=== PATIENT | female | born 1960 | race Caucasian/White ===

== ENCOUNTER → 2017-10-16 13:42 | Outpatient (POV) | payer OTHER, SELFPAY | PROVIDERS: Visit Provider Physician Assistant | DX: Z00.00 Encounter for general adult medical examination without abnormal findings (principal) ==

== ENCOUNTER → 2020-12-04 16:24 | Outpatient (CLI) | payer MEDICARE, SELFPAY ==
--- NOTE | 2020-12-04 16:29 | XR_ITS ---
PROCEDURE INFORMATION: Exam: XR Right Hip Exam date and time: 12/04/2020 4:29 PM Age: 60 years old Clinical indication: Patient HX: Fall, right hip pain, hematoma of right hip; Additional info: Pain post traumatic fall TECHNIQUE: Imaging protocol: XR Right hip. Views: 2 or 3 views hip with pelvis when performed. Total images: 3 COMPARISON: No relevant prior studies available. FINDINGS: Bones/joints: Osteopenia. No fracture. Hip joints are well aligned. Mild-moderate joint space narrowing and osteoarthritic spurring in the medial right hip joint. No radiographic evidence to suggest transient osteoporosis or avascular necrosis. No blastic or lytic lesions. Mild osteoarthritic sclerosis in the SI joints with no evidence of diastasis. The pubic symphysis is unremarkable. Soft tissues: No gross soft tissue abnormalities. Other findings: No gross sacrococcygeal abnormalities. IMPRESSION: 1. No acute findings. 2. Osteopenia. 3. Mild-moderate osteoarthritic changes are seen in the inferomedial right hip joint space with joint space narrowing and marginal spurring.
== END ==
PROVIDERS: PCP Family Medicine; Visit Provider Family Medicine
DX: M54.9 Dorsalgia, unspecified (principal)
CPT/HCPCS: 73502

== ENCOUNTER → 2021-06-14 12:37 | Outpatient (CLI) | payer MEDICARE, SELFPAY ==
--- NOTE | 2021-06-14 12:37 | CA_ITS ---
FINAL REPORT TECHNIQUE: Color Doppler, duplex Doppler and whitney scale sonography of the bilateral neck arterial vasculature was performed. Velocities were measured in the carotid arteries. Stenosis evaluation based on the validated velocity criteria. CLINICAL HISTORY: ALONZO, HTN, dizziness, ex smoker quit 10-12 years ago, near syncopal episode, hx of TIA's FINDINGS: The peak systolic velocity of the right common carotid artery is 114 cm/s. The peak systolic velocity of the right internal carotid artery is 132 cm/s and end diastolic velocity 51 cm/s. A small amount of plaque is present. The right external carotid artery is patent. The right vertebral artery is patent with antegrade flow. The peak systolic velocity of the left common carotid artery is 135 cm/s. The peak systolic velocity of the left internal carotid artery is 179 cm/s and end diastolic velocity 50 cm/s. A small amount of plaque is present. The left external carotid artery is patent.The left vertebral artery is patent with antegrade flow. IMPRESSION: Less than 50% bilateral carotid stenoses. Bilateral patent vertebral arteries with antegrade flow. If indicated, CTA or MRA could further evaluate. Reviewed, Interpreted and Dictated by Royal Walter III, MD Transcribed by Jojo Gutiérrez Authenticated by Royal Walter III, MD on 06/14/2021 03:18:23 PM [facility]
--- NOTE | 2021-06-14 12:45 | XR_ITS ---
FINAL REPORT CLINICAL HISTORY: COPD FINDINGS: Two views of the chest were obtained. The heart size and pulmonary vascularity are within normal limits. The mediastinum is normal. No acute pulmonary abnormality is identified. There is no pneumothorax. There are postoperative changes of the lower C-spine. IMPRESSION: No active cardiopulmonary disease. Reviewed, Interpreted and Dictated by Royal Walter III, MD Transcribed by Nixon Salinas Authenticated by Royal Walter III, MD on 06/14/2021 02:05:59 PM [facility]
== END ==
PROVIDERS: PCP Family Medicine; Visit Provider Family Medicine
DX: R09.89 Other specified symptoms and signs involving the circulatory and respiratory systems (principal); J44.9 Chronic obstructive pulmonary disease, unspecified
CPT/HCPCS: 71046; 93880

== ENCOUNTER → 2022-09-22 07:48 | Outpatient (CLI) | payer MEDICARE, SELFPAY ==
--- NOTE | 2022-09-22 08:00 | XR_ITS ---
FINAL REPORT CLINICAL HISTORY: Pt fell x 7 wks ago, pain @ inferior angle of Lt scapula FINDINGS: LEFT SCAPULA 2 views of the left scapula were obtained. There is no acute fracture or dislocation. Visualized joint spaces are normally aligned. There are mild degenerative changes noted. Soft tissues are unremarkable. IMPRESSION: No acute bony abnormality. Reviewed, Interpreted and Dictated by Yulisa Victoria MD Transcribed by Jojo Gutiérrez Authenticated and . [facility]
--- NOTE | 2022-09-22 08:00 | XR_ITS ---
FINAL REPORT CLINICAL HISTORY: Pt fell in shower x 7 wks ago, dx w broken ribs, F/U. Hx COPD COMPARISON: 06/14/2021 FINDINGS: 2 views of the chest were obtained . The heart is normal in size. The mediastinum is within normal limits. Abnormal density in the right suprahilar region is similar to prior exam and is felt likely vascular or related to scarring. The lungs are otherwise clear. There is no pneumothorax. Osseous structures demonstrate old healed right rib fractures. IMPRESSION: No acute cardiopulmonary process. Reviewed, Interpreted and Dictated by Yulisa Victoria MD Transcribed by Jojo Gutiérrez Authenticated and [facility]
== END ==
LOC: RAD 07:50
PROVIDERS: PCP Family Medicine; Visit Provider Family Medicine
DX: J44.9 Chronic obstructive pulmonary disease, unspecified (principal); M15.4 Erosive (osteo)arthritis; S42.102A Fracture of unspecified part of scapula, left shoulder, initial encounter for closed fracture
CPT/HCPCS: 71046; 73010

== ENCOUNTER → 2022-10-04 07:06 | Outpatient (CLI) | payer MEDICARE, SELFPAY ==
--- NOTE | 2022-10-04 07:06 | CT_ITS ---
FINAL REPORT TECHNIQUE: Axial images were obtained from the lung apex to the mid abdomen by computed tomography. Coronal reformatted images were obtained. This study was performed with techniques to keep radiation doses as low as reasonably achievable, (ALARA). Individualized dose reduction techniques using automated exposure control or adjustment of mA and/or kV according to the patient''s size were employed. CLINICAL HISTORY: Chest pain post fall, fall last month still having grinding and popping sound COMPARISON: None FINDINGS: There is no axillary adenopathy. There are some nonspecific small mediastinal nodes present. There is a slight fullness in the anterior hilum, worrisome for lymph nodes or possible masses. Coronary artery calcifications are identified. Heart size is normal. Bilateral pleural calcifications are noted. There is no pericardial or pleural effusion. There are subacute or chronic fractures of the posterior sixth through 10th ribs on the left side, with a lack of bony union in most. The patient has undergone a prior cholecystectomy. No suspicious infiltrate or nodule is identified. IMPRESSION: Multiple subacute to chronic left posterior rib fractures, most of which lack of bony union. Slight fullness in the anterior hilum, worrisome for lymph nodes or possible masses. Would suggest a chest CT with contrast for further evaluation. Reviewed, Interpreted and Dictated by Royal Walter III, MD Transcribed by Isidra Willson Authenticated and [facility]
--- NOTE | 2022-10-04 07:08 | XR_ITS ---
FINAL REPORT TECHNIQUE: Bone densitometry calculations of the lumbar spine and left hip were obtained. CLINICAL HISTORY: osteopenia FINDINGS: Using L1-4, the bone mineral density of the spine is 0.906 g/cm2, corresponding to T-score of -1.3. Using the left hip, the bone mineral density of the femoral neck is 0.558 g/cm2, corresponding to a T-score of -3.1. Using the 1/3 radius, the bone mineral density of the radius is 0.451 g/cm2, corresponding to a T-score of -4.1. NOTE: T-score: Standard deviation compared with peak bone mass of young adult mean. *Following the recommendations of the International Society of Bone Densitometry, classification of hip BMD is based on the lower of two T-scores; total hip or femoral neck. IMPRESSION: Osteoporosis: Lowest T-score is at or below -2.5. This patient''s T-score meets the World Health Organization criteria for osteoporosis. FRAX data was not reported because some of the T-scores are at or below -2.5. Reviewed, Interpreted and Dictated by Royal Walter III, MD Transcribed by Helen Barnard Authenticated and [facility]
== END ==
LOC: RAD 07:06
PROVIDERS: PCP Family Medicine; Visit Provider Family Medicine
DX: R07.89 Other chest pain (principal); R07.9 Chest pain, unspecified; Z87.891 Personal history of nicotine dependence; M15.4 Erosive (osteo)arthritis; M81.0 Age-related osteoporosis without current pathological fracture; S42.109A Fracture of unspecified part of scapula, unspecified shoulder, initial encounter for closed fracture
CPT/HCPCS: 71250; 77080

== ENCOUNTER → 2022-12-22 22:21 | Outpatient (CLI) | payer MEDICARE, SELFPAY ==
[2022-12-22 20:19] LABS: Basophils % 0.7 % (0.1-2.0); Eosinophils # 0.2 K/mm3 (0.0-0.4); Eosinophils % 2.6 % (0.1-12.0); Hematocrit 40.7 % (37.0-47.0); Hemoglobin 13.2 g/dL (12.2-16.2); Lymphocytes # 1.5 K/mm3 (0.7-4.5); Mean Corpuscular HGB Conc 32.5 g/dL (31.8-35.4); Mean Corpuscular Hemoglobin 28.5 pg (27.0-31.2); Mean Corpuscular Volume 87.8 fl (81-99); Mean Platelet Volume 9.2 fl (7.4-10.4); Monocytes # 0.3 K/mm3 (0.1-1.0); Monocytes % 5.9 % (1.7-9.3); Neutrophils # 3.6 K/mm3 (1.8-7.8); Neutrophils % 63.9 % (37.0-80.0); Platelet Count 297 K/mm3 (142-424); Red Blood Count 4.63 M/mm3 (4.20-5.40); Red Cell Distribution Width 14.9 % (11.5-17.5); White Blood Count 5.7 K/mm3 (4.8-10.8)
[2022-12-22 20:23] LABS: Alanine Aminotransferase 17 U/L (12-78); Albumin Level 3.9 g/dl (3.5-5.0); Albumin/Globulin Ratio 1.5 (1.1-1.8); Alkaline Phosphatase 114 U/L (38-126); Anion Gap 13.1 mEq/L (5-15); Aspartate Amino Transferase 26 U/L (14-36); Bilirubin,Total 0.2 mg/dl (0.2-1.3); Blood Urea Nitrogen 14 mg/dl (7-17); Calcium 9.2 mg/dl (8.4-10.2); Carbon Dioxide 23 mmol/L (22.0-30.0); Chloride 108 mmol/L (98-107); Chol/HDL Ratio 3.8 (1-3.5); Cholesterol 208 mg/dl (140-200); Estimated Glomerular Filt Rate 101 ml/min (>60); GFR (African American) 122 ML/MIN (>60); Globulin 2.6 g/dL (1.3-3.2); Glucose 101 mg/dl (74-100); HDL Cholesterol 55 mg/dl (40-60); Potassium 4.1 mmoL/L (3.5-5.1); Sodium 140 mmol/L (136-145); Total Protein,Serum 6.5 g/dl (6.3-8.2); Triglycerides 78 mg/dl (30-150); VLDL Cholesterol 16 mg/dL (0-40)
[2022-12-22 20:34] LABS: Direct LDL Cholesterol 122.95 mg/dL (100-129)
[2022-12-22 20:40] LABS: 25-OH Vitamin D, Total 54.6 ng/mL (30-100)
[2022-12-22 20:43] LABS: Creatinine,Urine Random 56 mg/dL (Not Estab.)
[2022-12-22 20:44] LABS: Microalbumin < 6.000 mg/L (0-16.7)
[2022-12-22 20:54] LABS: Thyroid Stimulating Hormone 1.72 uIU/mL (0.465-4.68)
[2022-12-22 21:14] LABS: Vitamin B12 354 pg/mL (239-931)
== END ==
PROVIDERS: PCP Nurse Practitioner; Visit Provider Nurse Practitioner
DX: E55.9 Vitamin D deficiency, unspecified (principal); I10 Essential (primary) hypertension; F32.9 Major depressive disorder, single episode, unspecified; J44.9 Chronic obstructive pulmonary disease, unspecified; M81.0 Age-related osteoporosis without current pathological fracture; Z68.21 Body mass index [BMI] 21.0-21.9, adult; Z87.891 Personal history of nicotine dependence
CPT/HCPCS: 80053; 80061; 82043; 82306; 82570; 82607; 84443; 85025

== ENCOUNTER → 2022-12-27 08:54 | Outpatient (CLI) | payer MEDICARE, SELFPAY ==
[2022-12-27 18:00] LABS: Coronavirus 19, PCR Not Detected (NotDetected); Influenza A, PCR Not Detected (NotDetected); Influenza B, PCR Not Detected (NotDetected)
== END ==
PROVIDERS: PCP Nurse Practitioner; Visit Provider Nurse Practitioner
DX: J06.9 Acute upper respiratory infection, unspecified (principal); R06.09 Other forms of dyspnea; R09.89 Other specified symptoms and signs involving the circulatory and respiratory systems; R50.9 Fever, unspecified; R05.8 Other specified cough; J02.9 Acute pharyngitis, unspecified
CPT/HCPCS: 87636

== ENCOUNTER 2023-06-08 16:17 | Outpatient (CLI) | payer MEDICARE, SELFPAY ==
--- NOTE | 2023-06-08 16:32 | XR_ITS ---
PROCEDURE INFORMATION: Exam: XR Chest Exam date and time: 06/08/2023 4:35 PM Age: 62 years old Clinical indication: Shortness of breath; Additional info: SOB, right 10th rib FX TECHNIQUE: Imaging protocol: Radiologic exam of the chest. Views: 2 views. COMPARISON: CT CHEST WO CON 10/04/2022 7:07 AM FINDINGS: Lungs: Mild bibasilar atelectasis. No consolidation. Pleural spaces: Hazy opacities bilaterally consistent with bilateral posterior calcified pleural plaques. No pleural effusions. Heart/Mediastinum: Normal. No cardiomegaly. Vasculature: Atherosclerotic plaque in the aortic arch. Bones/joints: Status post cervical spine fusion. Mild thoracic spine dextroscoliosis. Multiple old left posterior rib fractures. IMPRESSION: No acute findings.
== END 2023-06-08 23:59 ==
LOC: RAD 16:18
PROVIDERS: PCP Nurse Practitioner; Visit Provider Nurse Practitioner
DX: R06.02 Shortness of breath (principal); S22.31XA Fracture of one rib, right side, initial encounter for closed fracture
CPT/HCPCS: 71046

== ENCOUNTER 2023-08-04 10:38 | Outpatient (CLI) | payer MEDICARE, SELFPAY ==
--- NOTE | 2023-08-04 10:39 | CT_ITS ---
FINAL REPORT CLINICAL HISTORY: lung cancer screening former smoker quit approx 10-12 years ago, total 47 years smoked 1PPD hx COPD COMPARISON: 10/04/2022 FINDINGS: CTDI vol (mGy): 2.90 DLP: 96.[address] images of the chest were obtained using the low-dose protocol for screening. There is no evidence of mediastinal or hilar mass or adenopathy. No axillary mass or adenopathy is identified. There are moderate left coronary artery calcifications. Again seen is mild fullness of the right hilum, favor vascular. There are bilateral pleural calcifications which may represent sequela of prior infection or asbestos exposure. There are several calcified granulomas. Limited imaging of the upper abdomen demonstrates postoperative change of cholecystectomy. There is a 5 mm right middle lobe nodule on image 45 which is stable. IMPRESSION: Stable 5 mm nodule in the right middle lobe on image 45. Lung RADS category 2. Recommend 12 month followup low-dose CT for further evaluation. Reviewed, Interpreted and Dictated by Royal Walter III, MD Transcribed by Jojo Gutiérrez Authenticated and [facility]
== END 2023-08-04 23:59 | disposition home or self-care (01) ==
LOC: RAD 10:39
PROVIDERS: PCP Nurse Practitioner; Visit Provider Nurse Practitioner
DX: Z87.891 Personal history of nicotine dependence (principal)
CPT/HCPCS: 71271

== ENCOUNTER 2024-01-15 11:45 | Outpatient (CLI) | payer MEDICARE, SELFPAY ==
[2024-01-15 19:59] LABS: HIV (1&2) Antibody Rapid NONREACTIVE (NONREACTIVE)
[2024-01-17 06:16] LABS: HCV Ab Non Reactive (Non Reactive)
== END 2024-01-15 23:59 | disposition home or self-care (01) ==
LOC: LAB.DROPOF 01-16 09:47
PROVIDERS: PCP Family Medicine; Visit Provider Family Medicine
DX: Z11.4 Encounter for screening for human immunodeficiency virus [HIV] (principal); Z11.59 Encounter for screening for other viral diseases
CPT/HCPCS: 86803; 87389

== ENCOUNTER 2024-07-18 13:53 | Outpatient (CLI) | payer MEDICARE, SELFPAY ==
[2024-07-18 18:22] LABS: Basophils % 0.4 % (0.1-2.0); Eosinophils # 0.1 Kmm3 (0.0-0.4); Eosinophils % 1.7 % (0.1-12.0); Hematocrit 37.8 % (37.0-47.0); Hemoglobin 12.7 g/dL (12.2-16.2); Immature Granulocytes # 0.05 10^3uL; Immature Granulocytes % 0.7 %; Lymphocytes # 2.5 K/mm3 (0.7-4.5); Lymphocytes % 33.4 % (10-50); Mean Corpuscular HGB Conc 33.6 g/dL (31.8-35.4); Mean Corpuscular Hemoglobin 30.2 pg (27.0-31.2); Mean Platelet Volume 9.7 fl (7.4-10.4); Monocytes # 0.6 K/mm3 (0.1-1.0); Monocytes % 8.1 % (1.7-9.3); Neutrophils # 4.1 K/mm3 (1.8-7.8); Neutrophils % 55.7 % (37.0-80.0); Nucleated Red Blood Cells # 0 10^3/uL; Nucleated Red Blood Cells % 0 %; Platelet Count 281 K/mm3 (142-424); Red Cell Distribution Width 13.2 % (11.5-17.5); Red Cell Distribution Width-SD 43.1 fL; White Blood Count 7.4 K/mm3 (4.8-10.8)
[2024-07-18 19:12] LABS: Alanine Aminotransferase 18 U/L (12-78); Albumin Level 3.7 g/dl (3.5-5.0); Albumin/Globulin Ratio 1.7 (1.1-1.8); Alkaline Phosphatase 110 U/L (38-126); Anion Gap 8.6 mEq/L (5-15); Aspartate Amino Transferase 22 U/L (14-36); Bilirubin,Total 0.3 mg/dl (0.2-1.3); Blood Urea Nitrogen 9 mg/dl (7-17); Carbon Dioxide 22 mmol/L (22.0-30.0); Chloride 110 mmol/L (98-107); Chol/HDL Ratio 3.7 (1-3.5); Cholesterol 179 mg/dl (140-200); Estimated Glomerular Filt Rate 101 ml/min (>60); GFR (African American) 122 ML/MIN (>60); Globulin 2.2 g/dL (1.3-3.2); Glucose 85 mg/dl (74-100); HDL Cholesterol 48 mg/dl (40-60); Potassium 3.6 mmoL/L (3.5-5.1); Sodium 137 mmol/L (136-145); Total Protein,Serum 5.9 g/dl (6.3-8.2); Triglycerides 80 mg/dl (30-150); VLDL Cholesterol 16 mg/dL (0-40)
[2024-07-18 19:23] LABS: Direct LDL Cholesterol 113.61 mg/dL (100-129)
[2024-07-18 19:29] LABS: 25-OH Vitamin D, Total 33.6 ng/mL (30-100); T4 (Thyroxine) 8.4 ug/dl (5.53-11.0)
[2024-07-18 19:42] LABS: Thyroid Stimulating Hormone 1.23 uIU/mL (0.465-4.68)
== END 2024-07-18 23:59 | disposition home or self-care (01) ==
LOC: LAB.DROPOF 22:39
PROVIDERS: PCP Nurse Practitioner Family; Visit Provider Nurse Practitioner Family
DX: N39.0 Urinary tract infection, site not specified (principal); Z00.00 Encounter for general adult medical examination without abnormal findings
CPT/HCPCS: 80053; 80061; 82306; 84436; 84443; 85025; 87086; 87088; 87186

== ENCOUNTER 2024-08-23 11:15 | Outpatient (CLI) | payer MEDICARE, SELFPAY ==
--- OUTSIDE RECORDS SUMMARY | 2024-08-24 08:32 | XMS_ITS | Referral Summary ---
Author Organization [facility] Address [address] [facility] [place] [address] Care Team Providers Care Strategic Debriefing Specialist Name Role Phone Pietro Verdugo MD Primary Care Provider [phone] Allergies Active Allergy Reactions Criticality Noted Date Comments Penicillins Unknown 02/07/2018 Medications Fluticasone-Umec lidin-Vilant (TRELEGY ELLIPTA IN) Use. Active citalopram (CELEXA) 20 MG TABS Take 20 mg by mouth daily. Active montelukast (SINGULAIR) 10 MG TABS Take 10 mg by mouth at bedtime. Active predniSONE (DELTASONE) 5 MG TABS Take 5 mg by mouth daily. Active omeprazole (PRILOSEC) 20 MG CPDR Take 20 mg by mouth daily. Active Probiotic Product (PROBIOTIC DAILY PO) Take by mouth. Active Albuterol (VENTOLIN IN) Use. Active Active Problems Problem Noted Date Diagnosed Date Carpal tunnel syndrome, right - RT OCTR (04-24-18 ) 02/08/2018 Social History Tobacco Use Types Packs/Day Years Used Date Smoking Tobacco: Never Smokeless Tobacco: Never Alcohol Use Standard Drinks/Week Comments Never 0 (1 standard drink = 0.6 oz pur e alcohol) AUDIT-C Answer Date Recorded Frequency of Alcohol Consumption Never 02/07/2018 Average Number of Drinks Not on file 018 Frequency of Binge Drinking Not on file 01/27 Comments No Sex and Gender Information Value Date Recorded Sex Assigned at Not on file Legal Sex Female 12:54 PM EDT Gender Identity Not on file Sexual Orientation Not on file Last Filed Vital Signs Vital Sign Reading Time Taken Comments Blood Pressure 143/65 04/24/2018 9:45 AM EST Pulse 80 04/24/2018 9:45 AM EST Temperature 36.6 C (97.8 F) 04/24/2018 7:58 AM EST Respiratory Rate 16 04/24/2018 9:45 AM EST Oxygen Saturation 100% 04/24/2018 9:45 AM EST Inhaled Oxygen Concentration - - Weight 72.6 kg (160 lb) 06/13/2018 10:55 AM EDT Height 157.5 cm (5' 2 ) 06/13/2018 10:55 AM EDT Body Mass Index 29.26 06/13/2018 10:55 AM EDT Functional Status * Are you deaf or do you have serious difficulty hearing? Answer Date of Assessment Author No 04/03/2018 12:04 PM Marianela Everett Registered Nurse * Are you blind or do you have serious difficulty seeing, even when wearing glasses? Answer Date of Assessment Author No 04/03/2018 12:04 PM Marianela Everett Registered Nurse * Do you have serious difficulty walking or climbing stairs? (5 years old or older) Answer Date of Assessment Author No 04/03/2018 12:04 PM Marianela Everett Registered Nurse * Do you have difficulty dressing or bathing? (5 years old or older) Answer Date of Assessment Author No 04/03/2018 12:04 PM Marianela Everett Registered Nurse * Because of a physical, mental, or emotional condition, do you have difficulty doing errands alone such as visiting a doctor???s office or shopping? (15 years old or older) Answer Date of Assessment Author No 04/03/2018 12:04 PM Marianela Everett Registered Nurse Mental Status * Because of a physical, mental, or emotional condition, do you have serious difficulty concentrating, remembering, or making decisions? (5 years old or older) Answer Entry Date Author No 04/03/2018 12:04 PM Marianela Everett Registered Nurse Plan of Treatment Not on file [place] [place] [address] ALL OTHERS NOT MEDICARE Care Teams Strategic Debriefing Specialist Relationship Specialty Start Date End Date Pietro Verdugo MD PCP - General 11/13/08
--- OUTSIDE RECORDS SUMMARY | 2024-08-24 08:32 | XMS_ITS | Clinical Summary ---
Author Organization [facility] Address [address] [place] [id number] Care Team Providers Care Internet Sales Manager Name Role Phone Pietro Verdugo MD Primary Care Provider Tye Chowdary MD Unavailable [phone] Allergies Active Allergy Reactions Criticality Noted Date Comments Penicillins 05/05/2020 Medications amLODIPine-freddy zepriL (LOTREL) 10-40 mg Capsule Take 1 Cap by mouth daily. Active omeprazole (PRILOSEC) 40 mg Capsule, Delayed Release(E.C.) Take 40 mg by mouth daily. Active citalopram (CELEXA) 20 mg tablet Take 20 mg by mouth daily. Active montelukast (SINGULAIR) 10 mg Tablet Take 10 mg by mouth nightly at bedtime. Active ipratropium (ATROVENT) 21 mcg (0.03 %) nasal spray Stowell 2 Sprays into nose 2 times daily. Active albuterol (VENTOLIN/PROAI R/PROVENTIL HFA) 90 mcg/actuation HFA Aerosol Inhaler Take 2 Puffs by inhalation. Active fluticasone-ume clidin-vilanter (Trelegy Ellipta) 100-62.5-25 mcg Disk with Device Take by inhalation daily. Active Albuterol-Iprat ropium (DUONEB) 0.5 mg-3 mg(2.5 mg base)/3 mL nebulizer solution 3 mL by Nebulization route. Active Social History Tobacco Use Types Packs/Day Years Used Date Smoking Tobacco: Former Smokeless Tobacco: Never Alcohol Use Standard Drinks/Week Comments Yes 0 (1 standard drink = 0.6 oz pur e alcohol) AUDIT-C Answer Date Recorded Q1: How often do you have a drink containing alc ohol? Monthly or less 05/05/2020 Q2: How many drinks containi ng alcohol do you have on a typical day when you are drinking? Not asked 05/05/2020 Q3: How often do you have si x or more drinks on one occasion? Not asked 05/05/2020 Comments Unknown Sex and Gender Information Value Date Recorded Sex Assigned at Not on file Legal Sex Female 11:49 AM EST Gender Identity Not on file Sexual Orientation Not on file Last Filed Vital Signs Vital Sign Reading Time Taken Comments Blood Pressure 138/74 05/05/2020 10:42 AM EST Pulse - - Temperature - - Respiratory Rate - - Oxygen Saturation - - Inhaled Oxygen Concentration - - Weight 70.8 kg (156 lb) 05/05/2020 10:41 AM EST Height 157.5 cm (5' 2 ) 05/05/2020 10:41 AM EST Body Mass Index 28.53 05/05/2020 10:41 AM EST Plan of Treatment Health Maintenance Due Date Last Done Comments Cologuard 1959 Colonoscopy 1959 Colorectal Cancer Screening 1959 FIT 1959 Lipid Screening 09/17/1977 Cervical Cancer Screening 09/17/1980 Hepatitis C Virus (HCV) Screening 09/17/1980 Pneumococcal Vaccine: 50+ Years (1 of 1 - PCV) 010 Zoster-RZV(Shingrix) (1 of 2) 09/17/2009 Breast Cancer Screening 04/19/2019 04/19/2017 Tetanus Vaccination (Every 10 Years) 11/01/202206/2012 COVID-19 Vaccine ( - season) 2023 Depression Screening 02/28/2024 Influenza Vaccination (Season Ended) 2024 RSV Vaccines (1 - 1-dose 75+ series) 09/17/2034 Insurance ANTHEM ANTHEM Care Teams Internet Sales Manager Relationship Specialty [place] [address] [place] [address] PCP - General Family Medicine 05/04/20 Tye Chowdary MD [address] [place] [id number] Vascular Surgery 05/05/20
--- OUTSIDE RECORDS SUMMARY | 2024-08-24 08:32 | XMS_ITS | Data Portability ---
Author Organization [place] - [facility] Address [address] [place] [address] Care Team Providers Care Field Administrative Assistant Name Role Phone DEBBI RUIZ Sports Team Marketing Intern DEBBI RUIZ Sports Team Marketing Intern Unavailable JESSICA VERDUGO Primary Care Provider Assessment Encounter Date Assessment Date Assessment LastModified by Organization Details LastModified Time 07/18/2023 07/18/2023 Patient Educatio n was printed, I have reviewed the Past Medical, Family, and Social Histories along with ROS and all orders in today's record, and have noted any changes. Medications, charts and records reviewed in full today. - blood pressure 110/72, heart rate 83, weight 134 lb. Oxygen saturation is 97% on room air. - LAST ECHO: 11/2021 EF of 55-60% with mild MR. LAST ISCHEMIC EVAL: 11/2021 GXT revealed ABN. LAST HEART CATH: 06/2023 mild diffuse coronary artery disease. Normal LVEDP and LVEF. 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 NOTHING HEMODYNAMICALLY SIGNIFICANT. PAST LHC: 07/06/09. - Plan: Complete echocardiogram and carotid ultrasound as scheduled on 07/26/2023. Start atorvastatin 40 mg nightly. Consider lipid panel at follow-up. Follow-up in 3 to 4 weeks. - -Continue other current medications. -Continue aggressive risk factor modification. -Recommend LDL less than 70. -Encouraged regular exercise and activity. - This note was dictated using [employer] software. If something is unclear, or does not make sense, please do not hesitate to contact our office at [phone] for clarification. Not available 07/18/2023 15:54:48 08/23/2023 08/23/2023 Patient Educatio n was printed, I have reviewed the Past Medical, Family, and Social Histories along with ROS and all orders in today's record, and have noted any changes. Medications, charts and records reviewed in full today. - blood pressure 118/64, heart rate 77, weight 132 lb. Oxygen saturation is 97% on room air. - LAST ECHO: 07/2023 revealed normal LVEF of 60% with moderate aortic stenosis, mild mitral insufficiency. LAST ISCHEMIC EVAL: 11/2021 GXT revealed ABN. LAST HEART CATH: 06/2023 mild diffuse coronary artery disease. Normal LVEDP and LVEF. LAST CNI: 07/2023 revealed mild, 1% to 39% ICA stenosis in the right ICA. Decreased velocities from 2012. Moderate, 40% to 59% ICA stenosis on the left, with increased velocities from 2011. PAST [facility]: 07/06/09. - Plan: Discussed test results in full. Discussed risk factor modification. Discussed nonpharmacological management of cholesterol. Discussed statin alternatives. Provided printed patient education regarding statin alternatives for patient. Total service time 36 minutes. Follow-up in 3 to 4 months. I have welcome the patient to call us sooner if she would like to try an alternative to statin therapy. - -Continue other current medications. -Continue aggressive risk factor modification. -Recommend LDL less than 70. -Encouraged regular exercise and activity. - This note was dictated using [employer] software. If something is unclear, or does not make sense, please do not hesitate to contact our office at [phone] for clarification. Not available 08/23/2023 18:19:03 Plan of Treatment Reminders Order Date Submit Date Provider Last Modified By Organization Details Last Modified Time Details Appointments None recorded. Lab None recorded. Referral None recorded. Procedures None recorded. Surgeries None recorded. Imaging XR, cervical spine 2024 025 darrian [facility], [address] [place] [address], [phone], 01/29/202 5 10:02:50 XR, shoulder 2024 025 [facility], [address] [place] [address], [phone], 5 10:02:50 Medication Orders Kenalog 10 mg/mL suspension for injection 2024 025 [email or web address] [facility], [address] [place] [address], [address], 5 12:26:20 bupivacaine HCl 0.5 % (5 mg/mL) injection solution 2024 025 [email or web address] [facility] [address], [address], 5 12:26:20 Kenalog 10 mg/mL suspension for injection 2024 025 [email or web address] [facility] [address], [address], 5 12:22:19 bupivacaine HCl 0.5 % (5 mg/mL) injection solution 2024 025 [email or web address] [facility] [address], [address], 5 12:22:19 atorvastati n 40 mg tablet 2023 024 [email or web address] [facility] - [address], [address], 4 14:02:15 Patient TargetsNo targets recorded. Patient Instructions Encounter Date Encounter Id Patient Instructions Last Modified By Organization Details Last Modified Time 04/08/2024 [id number] rotator cuff: exercises [email or web address] Not available 04/08/2024 08:38:37 Reason for Referral None Reported. Results Created Date Observation Date Name Description Value Unit Range Abnormal Flag Note LastModifiedBy Organization Detail LastModifiedTime 07/03/19 24 07/03/2023 CBC W/AUT O DIFFE RENTI AL note SEE NOTE Order ing Provi noman: Debbi ghotra MD Not Available [address] Shannan Roa, [place], [address], 07/03/2023 12:56:59 07/03/19 24 07/03/2023 CBC W/AUT O DIFFE RENTI AL white blood cell 7.2 10e3/ uL 4.5-13 .0 normal Not Available [place] [address], [place], [address], 07/03/2023 12:56:59 07/03/19 24 07/03/2023 CBC W/AUT O DIFFE RENTI AL red blood cell 4.73 10e6/ uL 3.80-5 .10 normal Not Available [place] [address], [place], [address], 07/03/2023 12:56:59 07/03/19 24 07/03/2023 CBC W/AUT O DIFFE RENTI AL hemoglobin 13.1 g/dL 11.5-1 5.3 normal Not Available [place] [address], [place], [address], 07/03/2023 12:56:59 07/03/19 24 07/03/2023 CBC W/AUT O DIFFE RENTI AL hematocrit 39.9 % 34.0-4 6.0 normal Not Available [place] [address], [place], [address], 07/03/2023 12:56:59 07/03/19 24 07/03/2023 CBC W/AUT O DIFFE RENTI AL mean cell volume 84 fL 78.0-9 8.0 normal Not Available [place] [address], [place], [address], 07/03/2023 12:56:59 07/03/19 24 07/03/2023 CBC W/AUT O DIFFE RENTI AL mean cell HGB 27.7 pg 25.0-3 5.0 normal Not Available [address] Shann[place], [place], [address], 07/03/2023 12:56:59 07/03/19 24 07/03/2023 CBC W/AUT O DIFFE RENTI AL mean cell HGB concentratio n 32.8 g/dL 31.0-3 6.0 normal Not Available [address] Shannan Roa, [place], [address], 07/03/2023 12:56:59 07/03/19 24 07/03/2023 CBC W/AUT O DIFFE RENTI AL red cell distribution width 16.2 % 11.0-1 5.0 high Not Available [address] Shann[place], [place], [address], 07/03/2023 12:56:59 07/03/19 24 07/03/2023 CBC W/AUT O DIFFE RENTI AL platelet count 339 10e3/ uL 150-40 0 normal Not Available [address] Shann[place], [place], [address], 07/03/2023 12:56:59 07/03/19 24 07/03/2023 CBC W/AUT O DIFFE RENTI AL immature granulocyte % 0 0-1 normal Not Available [address] , [place], [address], 07/03/2023 12:56:59 07/03/19 24 07/03/2023 CBC W/AUT O DIFFE RENTI AL neutrophil % 61 % 35-75 normal Not Available [address] , [place], [address], 07/03/2023 12:56:59 07/03/19 24 07/03/2023 CBC W/AUT O DIFFE RENTI AL lymphocyte % 30 % 10-50 normal Not Available [address] , [place], [address], 07/03/2023 12:56:59 07/03/19 24 07/03/2023 CBC W/AUT O DIFFE RENTI AL monocyte % 7 % 0-15 normal Not Available [address] Shann[place], [place], [address], 07/03/2023 12:56:59 07/03/19 24 07/03/2023 CBC W/AUT O DIFFE RENTI AL eosinophil % 1 % 0-5 normal Not Available [address] , [place], [address], 07/03/2023 12:56:59 07/03/19 24 07/03/2023 CBC W/AUT O DIFFE RENTI AL basophil % 0 % 0-5 normal Not Available [address] Shann[place], [place], [address], 07/03/2023 12:56:59 07/03/19 24 07/03/2023 CBC W/AUT O DIFFE RENTI AL immature granulocyte # 0.02 x1000 /uL 0-0.05 normal Not Available [address] [place]ann[place], [place], [address], 07/03/2023 12:56:59 07/03/19 24 07/03/2023 CBC W/AUT O DIFFE RENTI AL neutrophil # 4.40 x1000 /uL 1.50-8 .00 normal Not Available [address] , [place], [address], 07/03/2023 12:56:59 07/03/19 24 07/03/2023 CBC W/AUT O DIFFE RENTI AL lymphocyte # 2.12 x1000 /uL 1.20-5 .20 normal Not Available [address] , [place], [address], 07/03/2023 12:56:59 07/03/19 24 07/03/2023 CBC W/AUT O DIFFE RENTI AL monocyte # 0.49 x1000 /uL 0.40-0 .90 normal Not Available [address] , [place], [address], 07/03/2023 12:56:59 07/03/19 24 07/03/2023 CBC W/AUT O DIFFE RENTI AL eosinophil # 0.10 x1000 /uL 0.00-0 .50 normal Not Available [address] , [place], [address], 07/03/2023 12:56:59 07/03/19 24 07/03/2023 CBC W/AUT O DIFFE RENTI AL basophil # 0.02 x1000 /uL 0.00-0 .30 normal Not Available [address] , [place], [address], 07/03/2023 12:56:59 07/03/19 24 07/03/2023 CBC W/AUT O DIFFE RENTI AL NRBC automated 0.0 /100_ WBC Not Available [address] , [place], [address], 07/03/2023 12:56:59 07/03/19 24 07/03/2023 CBC W/AUT O DIFFE RENTI AL performing lab SEE NOTE [facility] R [address] [place] [address] DRIVE [facility] [address] Not Available [address] , [place], [address], 07/03/2023 12:56:59 07/03/19 24 07/03/2023 COMP METAB OLIC PANEL note SEE NOTE Order ing Provi noman: Debbi ghotra MD Not Available [address] , [place], [address], 07/03/2023 13:51:00 07/03/19 24 07/03/2023 COMP METAB OLIC PANEL sodium 133 mmol/ L 136-14 5 low Not Available [address] , [place], [address], 07/03/2023 13:51:00 07/03/19 24 07/03/2023 COMP METAB OLIC PANEL potassium 3.6 mmol/ L 3.5-5. 1 normal Not Available [address] , [place], [address], 07/03/2023 13:51:00 07/03/19 24 07/03/2023 COMP METAB OLIC PANEL chloride 102 mmol/ L 98-107 normal Not Available [address] [place], [place], [address], 07/03/2023 13:51:00 07/03/19 24 07/03/2023 COMP METAB OLIC PANEL carbon dioxide 24 mmol/ L 24-33 normal Not Available [address] , [place], [address], 07/03/2023 13:51:00 07/03/19 24 07/03/2023 COMP METAB OLIC PANEL anion gap 10.6 mmol/ L 10-20 normal Not Available [address] [place], [address], 07/03/2023 13:51:00 07/03/19 24 07/03/2023 COMP METAB OLIC PANEL glucose 91 mg/dL 70-99 normal Not Available [address] [place], [address], 07/03/2023 13:51:00 07/03/19 07/03/2023 COMP METAB OLIC PANEL blood urea nitrogen 8 mg/dL 7-18 normal Not Available [address] [place], [address], 07/03/2023 13:51:00 07/03/19 24 07/03/2023 COMP METAB OLIC PANEL creatinine 0.60 mg/dL 0.55-1 .02 normal Not Available [address] , [place], [address], 07/03/2023 13:51:00 07/03/19 24 07/03/2023 COMP METAB OLIC PANEL GFR (estimated) 101 mL/mi n >60 normal [IM JOSE LUIS NT]: The 2020 CKD-E PI equat ion is now the recom dimitri d stand lorelei. This versi on does not inclu de race, as do the 2008 and 2011 CKD-E PI creat inine and creat inine -cyst atin C equat ions. Pleaziza e note that the eGFR now repor stacey is gener ated by the new 2020 CKD-E PI equat ion, which decre ases the eGFR for black s by up to 10% and incre ases the eGFR for non-b lacks by up to 10% in katy rison to the old equat ion. To katy re a legac y eGFR to a curre nt value , a 2008 CKD-E PI calcu lator is easil y searc hable on the inter net. Calcu lated GFR: This calcu lated GFR is advoc ated by the Natio nal Kidne y Found ation to be used as an indic ator of Chron ic Kidne y Disea se (CKD) . 5 Stage s of Chron ic Kidne y Disea se. Stage 1 90 mL/mi n or more Healt hy kidne ys or Kidne y damag e with rica l or high GFR detai ls Stage 2 60 to 89 mL/mi n Kidne y damag e and mild decre ase in GFR detai ls Stage 3 30 to 59 mL/mi n Moder ate decre ase in GFR detai ls Stage 4 15 to 29 mL/mi n Sever e decre ase in GFR detai ls Stage 5 Less than 15 mL/mi n On dialy sis or Kidne y failu re Patie nt's clini dorothy statu s must be consi dered for the care of your patie nt. Not Available [address] , [place], [address], 07/03/2023 13:51:00 07/03/19 24 07/03/2023 COMP METAB OLIC PANEL BUN/creatini ne ratio 13 -20 normal Not Available [address] , [place], [address], 07/03/2023 13:51:00 07/03/19 24 07/03/2023 COMP METAB OLIC PANEL total protein 6.7 g/dL 6.4-8. 2 normal Not Available [address] , [place], [address], 07/03/2023 13:51:00 07/03/19 24 07/03/2023 COMP METAB OLIC PANEL albumin 3.6 g/dL 3.4-5. 0 normal Not Available [address] [place], [place], [address], 07/03/2023 13:51:00 07/03/19 24 07/03/2023 COMP METAB OLIC PANEL globulin 3.1 g/dL 1.5-4. 0 normal Not Available [address] , [place], [address], 07/03/2023 13:51:00 07/03/19 24 07/03/2023 COMP METAB OLIC PANEL albumin/glob ulin ratio 1.2 0.5-2. 0 normal Not Available [address] , [place], [address], 07/03/2023 13:51:00 07/03/19 24 07/03/2023 COMP METAB OLIC PANEL calcium 9.0 mg/dL 8.5-10 .1 normal Not Available [address] , [place], [address], 07/03/2023 13:51:00 07/03/19 24 07/03/2023 COMP METAB OLIC PANEL osmolality serum calculated 263 mOsm/ kg 272-28 8 low Not Available [address] , [place], [address], 07/03/2023 13:51:00 07/03/19 24 07/03/2023 COMP METAB OLIC PANEL bilirubin total 0.3 mg/dL 0.2-1. 0 normal Use of this assay is not recom dimitri d for patie nts under going treat ment with Eltro mbopa g due to the poten tial for false ly eleva stacey resul ts. Not Available [address] , [place], [address], 07/03/2023 13:51:00 07/03/19 24 07/03/2023 COMP METAB OLIC PANEL SGOT/AST 12 U/L 15-37 low Not Available [address] , [place], [address], 07/03/2023 13:51:00 07/03/19 24 07/03/2023 COMP METAB OLIC PANEL SGPT/ALT 22 U/L 14-59 normal Not Available [address] , [place], [address], 07/03/2023 13:51:00 07/03/19 24 07/03/2023 COMP METAB OLIC PANEL alkaline phosphatase total 133 U/L 46-116 high Not Available [address] , [place], [address], 07/03/2023 13:51:00 07/03/19 24 07/03/2023 COMP METAB OLIC PANEL performing lab SEE NOTE ML - [facility] [address] [facility] [address] Not Available [address] [place], [address], 07/03/2023 13:51:00 07/03/19 24 07/03/2023 LIPID PANEL note SEE NOTE Order ing Provi noman: Debbi ghotra MD Not Available [address] , [place], [address], 07/03/2023 13:51:02 07/03/19 24 07/03/2023 LIPID PANEL triglyceride s 43 mg/dL < 150 normal Natio nal Aster stero l Educa tion Progr am (NCEP ) Guide lines : Rica l < 150 mg/dL Borde rline 150 - 199 mg/dL High 200 - 499 mg/dL Very High >or= 500 mg/dL Not Available [address] [place], [address], 07/03/2023 13:51:02 07/03/19 24 07/03/2023 LIPID PANEL cholesterol 231 mg/dL < 200 high Natio nal Aster stero l Educa tion Progr am (NCEP ) Guide lines : Florentin able < 200 mg/dL Borde rline Risk 200 - 239 mg/dL High Risk >or= 240 mg/dL Not Available [address] [place], [address], 07/03/2023 13:51:02 07/03/19 24 07/03/2023 LIPID PANEL HDL cholesterol 77 mg/dL > 60 normal Natio nal Aster stero l Educa tion Progr am Adult Treat ment Panel III (NCEP -ATP III) Guide lines : < 40 mg/dl : Low HDL-C holes terol >or= 60 mg/dl : High HDL-C holes terol Not Available [address] [place], [address], 07/03/2023 13:51:02 07/03/19 24 07/03/2023 LIPID PANEL LDL cholesterol 145 mg/dL < 100 high Natio nal Aster stero l Educa tion Progr am (NCEP ) Guide lines : Optim al < 100 mg/dL Near/ Above Optim al 100 - 129 mg/dL Borde rline High 130 - 159 mg/dL High 160 - 189 mg/dL Very High >or= 190 mg/dL Not Available [address] , [place], [address], 07/03/2023 13:51:02 07/03/19 24 07/03/2023 LIPID PANEL performing lab SEE NOTE [facility] [address] [facility] [address] Not Available [address] , [place], [address], 07/03/2023 13:51:02 06/26/19 elect rocar diogr am No observ ation record ed. PEYMAN [address], [place], [address], 06/26/2023 11:07:36 06/26/19 24 06/26/2023 elect rocar diogr am No observ ation record ed. PEYMAN [address], [place], [address], 06/26/2023 11:26:26 07/27/19 24 06/26/2023 elect rocar diogr am No observ ation record ed. [email or web address] Not Available 06/29 15:09:43 08/02/19 24 08/02/2023 US, pam gutierrez id arter y [facility] Medica l Ce Name: NICHELLE ACOSTA [facility] Med[facility] Phys: [place] [address] : 1960 Age: 62 Sex: F Acct: [id number] Loc: CASEY PHONE #: [phone] Exam Date: 2023 Status : REG CLI FAX #: Rad# [id number] Unit# [id number] Admit Date: 2023 EXAMS: CPT CODE: [id number] CAROTI D DUPLEX DOPPLE R [id number] BILATE RAL CAROTI D DUPLEX , 08/02/19 24 CLINIC AL HISTOR Y: Dizzin ess and left-s ided neck pain with histor y of hypert ension and tobacc o use COMPAR SRIDHAR: Bilate ral caroti d duplex , caroti d duplex , 2011. TECHNI QUE: Multip le graysc julio sonogr aphic images of the bilate ral caroti d arteri es were obtain ed in the transv erse and longit udinal planes . Color Dopple r and spectr al wavefo rm analys is was applie d assess vascul ar flow. All stenos is percen tages are made in refere nce to the distal ICA. FINDIN GS: There is modera te type III plaque in the right caroti d bulb and extend ing into the origin of the right ICA. The peak systol ic veloci ties of the right common , internet sales consultant al, and security patrol officer al caroti d arteri es are 132, 78, and 155 cm/sec , respec tively . The veloci ty ratios are normal and the right ICA veloci ties are decrea sed from prior. There is modera te to large type III plaque within the distal left CCA and modera te type III plaque within the proxim al left ICA. The peak systol ic veloci ties of the left common , internet sales consultant al, and security patrol officer al caroti d arteri es are 104, 129, and 119 cm/s, respec tively . The veloci ty ratios are normal and the left ICA veloci ties are increa sed from prior. Normal flow is identi fied within the bilate ral verteb ral and subcla vian arteri es. IMPRES HANNA: 1. 1-39% stenos is of the right ICA, with decrea sed veloci ties from 2011. 2. 40-59% stenos is of the left ICA, with increa sed veloci ties from 2011. Electr onical ly Signed by MIRTHA GRIFFIN MD on 2023 at 1438 Report ed and signed by: MIRTHA GRIFFIN MD PAGE 1 Signed Report (LESVIA NUED) [facility] Name: NICHELLE ACOSTA [employer] Phys: Andria zee APR[place] [address] : 1960 Age: 62 Sex: F Acct: [id number] Loc: CASEY PHONE #: [phone] Exam Date: 2023 Status : REG CLI FAX #: Rad# [id number] Unit# [id number] Admit Date: 2023 EXAMS: CPT CODE: [id number] CAROTI D DUPLEX DOPPLE R [id number] CC: Saturnino zee APRN; Jessica Verdugo MD Dictat ed Date/T hiro: 2023 (1438) Techno logist : KATIE MENENDEZ RNaliniTNalini Transc ribed Date/T hiro: 2023 (1438) Transc riptio nist: DR.HAG JANESSA Lamas onic Signat ure Date/T hiro: 2023 (1438) Printe d Date/T hiro: 2023 (1441) BATCH NO: N/A PAGE 2 Signed Report CC'ed Logic: Orderi ng Provid er: ANDRIA CHRISTENSEN Attend ing Provid er: ANDRIA CHRISTENSEN Referr ing Provid er: ANDRIA CHRISTENSEN Consul ting Provid er: CONSTANTIN LOPEZ [email or web address] , [place], [address], 08/02/2023 16:33:51 08/06/19 24 08/06/2023 - ECHO w/spe c/col or flow [facility] Name: NICHELLE ACOSTA [employer] Phys: [place] [address] : 1960 Age: 62 Sex: F Acct: [id number] Loc: CASEY PHONE #: [phone] Exam Date: 2023 Status : DEP CLI FAX #: Rad# [id number] Unit# [id number] Admit Date: 2023 EXAMS: CPT CODE: [id number] ECHO W/SPEC /COLOR FLOW 99995 Reason for study: Dyspne a Left ventri cular diasto le: 4.9 Left ventri cular systol e: 3.5 Septal wall thickn ess: 0.9 Medical Device Assembler ior wall thickn ess: 0.9 Right ventri cular diasto le: 1.5 Left Atrium : 3.5 Aortic root: 2.5 TR veloci ty: 2.62 m/s Impres hanna: 1. Normal left ventri cular size and functi on with an estima stacey ejecti on fracti on is 60% 2. No segmen selin wall motion abnorm alitie s 3. Normal left atrial and right atrial size 4. Normal right ventri cular size and functi on 5. Normal mitral valve, with mild mitral insuff icienc y 6. Modera te calcif icatio n and thicke karlos of the aortic valve leafle ts with modera te restri ction in aortic valve leafle t mobili ty. Peak veloci ty across the valve is 3.0 m/s. Peak left ventri cular for tract veloci ty is 1.1 m/s. This gives a calcul ated aortic valve area of approx imate 1.1 cm . This signif ies modera te aortic stenos is. There is no aortic insuff icienc y 7. No perica rdial effusi on 8. Normal aortic root 9. Normal tricus pid valve, which aggres sive regurg itant jet veloci ty of 2.62 m/s implyi ng a right ventri cular systol ic pressu re of approx imatel y 38 mmHg Electr onical ly Signed by DEBBI RUIZ MD on 2023 at 1124 Report ed and signed by: DEBBI RUIZ MD PAGE 1 Signed Report (LESVIA NUED) [facility] Medica l Ce Name: NICHELLE ACOSTA [facility] Phys: Erin Haynes [place]Nway[place] [address] : 1960 Age: 62 Sex: F Acct: [id number] Loc: CASEY PHONE #: Exam Date: 2023 Status : DEP CLI FAX #: Rad# [id number] Unit# [id number] Admit Date: 2023 EXAMS: CPT CODE: [id number] ECHO W/SPEC /COLOR FLOW [id number] CC: Saturnino zee APRN; Jessica Verdugo MD Dictat ed Date/T hiro: 2023 (1124) Techno logist : DAGO SRIVASTAVA Transc ribed Date/T hiro: 2023 (1124) Transc riptio nist: ER Electr onic Signat ure Date/T hiro: 2023 (1124) Printe d Date/T hiro: 2023 (1128) BATCH NO: N/A PAGE 2 Signed Report CC'ed Logic: Orderi ng Provid er: ANDRIA CHRISTENSEN Attend ing Provid er: ANDRIA CHRISTENSEN Referr ing Provid er: ANDRIA CHRISTENSEN Consul ting Provid er: CONSTANTIN LOPEZ [email or web address] [address] , [place], [address], 08/07/2023 19:24:52 08/22/19 24 08/22/2023 LDCT, chest , for lung cance r scree karlos No observ ation record ed. [email or web address] Not Available 2023 07:00:30 03/26/19 25 XR, shoul noman No observ ation record ed. PEYMAN [facility] [address], [address], 03/27/2024 09:39:54 03/26/19 XR, cervi dorothy spine No observ ation record ed. PEYMAN [facility] [address] [place], [address], 03/27/2024 09:40:03 04/03/1904/03/2024 - MRI shoul noman RT w/o cont [facility] Name: NICHELLE ACOSTA SURYA L [facility] [place] Phys: Osvaldo PHILIP,[place] [address] : 1960 Age: 63 Sex: F Acct: [id number] Loc: G.MRI PHONE #: Exam Date: 2024 Status : REG CLI FAX #: Rad# [id number] Unit# [id number] Admit Date: 2024 EXAMS: CPT CODE: [id number] MRI SHOULD ER RT W/O CONT [id number] Histor y: Right should er pain since having fall Techni que: Multip lanar multis equenc e MRI imagin g of the right should er. Compar sridhar: None Interp retati on: Rotato r cuff: Supras pinatu s tendin opathy and bursal sided frayin g. 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 There is no full-t hickne ss or retrac stacey rotato r cuff tendon tear. Biceps tendon : The long head of biceps tendon is positi oned normal ly in its intra- articu lar and extra- articu lar portio ns. No biceps tendon tear. Labrum : Circum ferent ial degene rative labral frayin g. Osseou s struct ures: No fractu re. There is no eviden ce for osteon ecrosi s. Small inferi or marva l head osteop hytes. Marva l head and glenoi d chondr al thinni ng. Acromi oclavi cular joint: Intact acromi oclavi cular joint with modera te osteoa rthros is. Other findin gs: Small glenoh umeral joint effusi on. Intact axilla ry pouch. No mass within the supras capula r or spinog lenoid notch. Impres hanna: - Supras pinatu s tendin opathy and bursal sided frayin g. 4 mm low-gr brennan intras ubstan ce or articu lar sided tear of the snow removing supervisor ior supras pinatu s/ante rior infras pinatu s. No full-t hickne ss or retrac stacey rotato r cuff tendon tear. - [place] umeral and acromi oclavi cular osteoa rthros is. Electr onical ly Signed by: Benjamin benito MD PAGE 1 Signed Report (LESVIA NUED) [facility] Name: NICHELLE ACOSTA [facility] Marketing[facility] [employer] Phys: Osvaldo PHILIP,[place] [place] [address] : 1960 Age: 63 Sex: F Acct: [id number] Loc: G.MRI PHONE #: Exam Date: 2024 Status : REG CLI FAX #: Rad# [id number] Unit# [id number] Admit Date: 2024 EXAMS: CPT CODE: [id number] MRI SHOULD ER RT W/O CONT [id number] Electr onical ly Signed by BENJAMIN Benito on 2024 at 1232 Report ed and signed by: CLIFF THOMPSON CC: Jessica Verdugo MD; Harjit Riley MD Dictat ed Date/T hiro: 2024 (1232) Techno logist : PALAK SALCEDO Transc ribed Date/T hiro: 2024 (1232) Transc riptio nist: DR.MAX XIE Electr onic Signat ure Date/T hiro: 2024 (1232) Printe d Date/T hiro: 2024 (1239) BATCH NO: N/A PAGE 2 Signed Report CC'ed Logic: Orderi ng Provid er: OSVALDO SANTANA Attend ing Provid er: OSVADLO SANTANA Referr ing Provid er: OSVALDO SANTANA Consul ting Provid er: CONSTANTIN [facility]st[facility] [address], [place], [address], 04/03/2024 12:52:58 Result Notes None recorded. Problems Name Problem SNOMED Code Status Onset Date Resolution Date Notes Provider Name and Address Organization Details Recorded Time Hypertensive disorder 97254940 Active 2021 Faith Goddard null, [place] & [place] 2 15:54:38 Chronic obstructive pulmonary disease 25030896 Active 2021 Faith Goddard [place] 2 15:55:49 Low blood pressure 75885924 Active 2021 Faith Goddard [place] 2 15:55:58 Dizziness 587469171 Active 2021 Faith Godd[place] 2 15:55:52 Edema 526345649 Active 2021 Faith Goddard [place] 2 15:55:55 Cerebrovascula r accident 204890066 Active 2021 Faith God[place]ard [place] 2 15:55:43 Essential hypertension 69234348 Active 2021 Debbi Ruiz MD [address], [place], [address], [place] & [place] 2 11:16:38 Palpitations 56393550 Active 2021 Debbi Ruiz MD [address], [place], [address], [place] & [place] 2 11:16:44 Diastolic dysfunction 3146752 Active 2022 Debbi Ruiz MD [address] [place] [address],[address] [facility], [place], [address], [place] [facility] & [place] 3 09:33:52 Dyspnea on exertion 67435499 Active 2022 Debbi Ruiz MD [address] [place] [address],[address], [place], [address], [place] [facility] & [place] 3 09:34:02 Coronary arterioscleros is 39281835 Active 2023 ANANTH COREA NP, S [address] [place] [address],[address], [place], [address], [place] [facility] & [place] 4 15:54:48 Problem Notes None recorded. Procedures Surgical History Date Name Laterality Status Provider Name and Address Organization Details Recorded Time 07/13/19 12 Cardiac Catheterization completed Vijaya Potts [place] & [place] 06/13/2022 16:00:38 07/07/19 10 Cardiac Catheterization completed Vijaya [place]otts [place] [facility] [place] 06/13/2022 15:58:53 total replacement of hip completed Tracey Gomez [place] - [facility] & [place] 06/14/2022 09:06:39 delivery completed Faith Goddard [place] & [place] 11/22/2021 15:59:10 hysterectomy completed Faith MALL[facility] - [facility] & [place] 11/22/2021 15:59:20 Elbow arthroscopy completed Faith Goddard [place] [facility] & [place] 11/22/2021 15:59:27 cholecystectomy completed Sandhya [place]on is [place] [facility] & [place] 11/23/2021 11:06:29 primary fusion of cervical spine completed Sandhya [place] [facility] & [place] 11/23/2021 11:06:46 Other completed Mary Bernal [place] [facility] & [place] 12/14/2021 11:24:02 Colonoscopy completed Mary BOYD [facility] & [place] 12/14/2021 11:24:02 Sports Team Marketing Intern Surgery completed Mary BOYD [facility] & [place] 12/14/2021 11:24:02 Head or Neck Surgery completed Mary BOYD [facility] & [place] 12/14/2021 11:24:02 Cholecystectomy completed Mary BOYD [facility] & [place] 12/14/2021 11:24:02 Tonsillectomy/Adeno idectomy completed Mary BOYD [facility] & [place] 12/14/2021 11:24:02 Imaging Results None recorded. Procedure Notes None recorded. Medical Equipment None Reported. Allergies Allergen ID Allergen Name Allergen Category Reaction Reaction Severity Criticality Documentation Date Start Date Code Code System Note Provider Name and Address Organization Details Recorded Time 348626 atorvasta tin medicatio n Not available Not available Not available 08/23/2023 38668 RxNorm ANANTH COREA NP, S [address] [place] [address],[address], [address] MOHAMUD Zimmerman [facility] & [place] 4 18:19:20 94919 Product containin g penicilli n (product) medicatio n Not available Not available Not available 11/22/2021 81402 8001 SNOMED MOHAMUD Davison [facility] & [place] 2 15:52:25 54081 Substance with sulfonami de structure and antibacte rial mechanism of action (substanc e) medicatio n Not available Not available Not available 11/22/2021 99204 8003 SNOMED MOHAMUD Davison [facility] & [place] 2 15:53:10 25134 Non-stero idal anti-infl ammatory agent (product) medicatio n Not available Not available Not available 11/23/2021 87469 005 SNOMED MOHAMUD Escamilla [facility] & [place] 2 15:01:23 Medications Name Sig Start Date Stop Date Status Note LastModified by Organization Details LastModified Time Prescript ion - Clarifica tion 06/14 completed Not Available Not Available Not Available atorvasta tin 40 mg tablet TAKE ONE (1) TABLET BY MOUTH DAILY IN THE EVENING 08/22 completed Multiple myalgias per patient Not Available Not Available Not Available prednison e 10 mg tablet TAKE ONE (1) TABLET BY MOUTH TWICE A DAY 11/23 completed Not Available Not Available Not Available azithromy courtney 250 mg tablet TAKE TWO (2) TABLETS (500 MG) TODAY (DAY 1), THEN ONE (1) TABLET (250 MG) FOR FOUR (4) DAYS (DAYS 2-5) active Not Available Not Available No t Available diltiazem CD 180 mg capsule,e xtended release 24 hr TAKE 1 CAPSULE BY MOUTH EVERY DAY active Not Available Not Available No t Available fluconazo le 150 mg tablet TAKE 1 TABLET BY MOUTH EVERY THREE (3) DAYS. MAY REPEAT DOSE AFTER 72 HOURS IF SYMPTOMS PERSISTS . active Not Available Not Available No t Available valacyclo vir 1 gram tablet TAKE 1 TABLET BY MOUTH TWICE DAILY active Not Available Not Available No t Available hydrocodo ne 5 mg-acetam inophen 325 mg tablet TAKE ONE (1) TABLET BY MOUTH EVERY SIX (6) HOURS NEEDED FOR PAIN ASSOCIAT ED WITH BROKEN RIBS 06/25 completed Not Available Not Available Not Available meloxicam 15 mg tablet TAKE ONE (1) TABLET BY MOUTH IN THE MORNING. 11/23 completed Not Available Not Available Not Available bupivacai ne HCl 0.5 % (5 mg/mL) injection solution Take 10 mg by injectio n route. 2024 active Not Available Not Available Not Avai lable prednison e 20 mg tablet TAKE 1 TABLET BY MOUTH TWICE A DAY FOR 5 DAYS active Not Available Not Available No t Available alendrona te 70 mg tablet TAKE ONE (1) TABLET BY MOUTH ONCE WEEKLY active Not Available Not Available No t Available acetamino phen 300 mg-codein e 30 mg tablet TAKE 1 TABLET BY MOUTH THREE (3) TIMES DAILY NEEDED FOR PAIN 11/23 completed Not Available Not Available Not Available tramadol 50 mg tablet TAKE ONE (1) TABLET BY MOUTH EVERY DAY NEEDED FOR PAIN active Not Available Not Available No t Available oxycodone -acetamin ophen 5 mg-325 mg tablet 06/25 completed Not Available Not Available Not Available citalopra m 20 mg tablet TAKE ONE (1) TABLET BY MOUTH DAILY active Not Available Not Available No t Available lorazepam 0.5 mg tablet TAKE ONE (1) TABLET (0.5 MG) ORALLY DAILY NEEDED FOR ANXIETY active Not Available Not Available No t Available Kenalog 10 mg/mL suspensio n for injection Take 20 mg by injectio n route. 2024 active Not Available Not Available Not Avai lable benzonata te 100 mg capsule TAKE 1 CAPSULE THREE TIMES A DAY NEEDED FOR COUGH active Not Available Not Available No t Available hydrocodo ne 7.5 mg-acetam inophen 325 mg tablet TAKE ONE (1) TAB BY MOUTH THREE TIMES A DAY NEEDED FOR PAIN 06/25 completed Not Available Not Available Not Available cephalexi n 500 mg capsule TAKE 1 CAPSULE BY MOUTH TWICE DAILY FOR 10 DAYS 11/23 completed Not Available Not Available Not Available pantopraz ole 40 mg tablet,de layed release TAKE 1 TABLET BY MOUTH EVERY DAY active Not Available Not Available No t Available omeprazol e 20 mg capsule,d elayed release Take 1 capsule every day by oral route. 06/14 completed Not Available Not Available Not Available monteluka st 10 mg tablet TAKE 1 TABLET BY MOUTH EVERY DAY active Not Available Not Available No t Available mupirocin 2 % topical ointment APPLY TOPICALL Y THREE TIMES DAILY 06/25 completed Not Available Not Available Not Available ergocalci ferol (vitamin D2) 1,250 mcg (50,000 unit) capsule TAKE 1 CAPSULE BY MOUTH ONCE WEEKLY active Not Available Not Available No t Available lorazepam 1 mg tablet TAKE 1 TABLET BY MOUTH EVERY DAY NEEDED FOR ANXIETY; USE SPARINGL Y active Not Available Not Available No t Available ibuprofen 600 mg tablet TAKE ONE (1) TABLET ORAL ROUTE EVERY SIX (6) HOURS NEEDED 06/25 completed Not Available Not Available Not Available levofloxa courtney 500 mg tablet TAKE 1 TABLET BY MOUTH EVERY 24 HOURS active Not Available Not Available No t Available methylpre dnisolone 4 mg tablets in a dose pack TAKE DIRECTED FOR 6 DAYS 11/23 completed Not Available Not Available Not Available ondansetr on 4 mg disintegr ating tablet DISSOLVE 1 TABLET BY MOUTH EVERY 8 HOURS NEEDED FOR NAUSEA AND VOMITING active Not Available Not Available No t Available cefdinir 300 mg capsule TAKE 1 CAPSULE BY MOUTH TWICE A DAY FOR 10 DAYS active Not Available Not Available No t Available fluticaso ne propionat e 50 mcg/actua tion nasal spray,dominic pension INSTILL ONE (1) SPRAY INTO EACH NOSTRIL EVERY DAY active Not Available Not Available No t Available doxycycli ne hyclate 100 mg tablet TAKE ONE (1) TABLET TWICE A DAY BY ORAL ROUTE DIRECTED FOR 7 DAYS. 11/23 completed Not Available Not Available Not Available amoxicill in 875 mg-potass ium clavulana te 125 mg tablet TAKE ONE (1) TABLET BY MOUTH TWICE A DAY 11/23 completed Not Available Not Available Not Available escitalop margarita 20 mg tablet TAKE 1 TABLET BY MOUTH EVERY DAY active Not Available Not Available No t Available Premarin 0.3 mg tablet TAKE ONE (1) TABLET BY MOUTH DAILY CYCLICAL LY 11/23 completed Not Available Not Available Not Available Percocet 06/14 completed Not Available Not Available Not Available amlodipin e 10 mg-benaze pril 40 mg capsule TAKE ONE (1) CAPSULE BY MOUTH EVERY DAY 11/23 completed Not Available Not Available Not Available ProAir HFA 90 mcg/actua tion aerosol inhaler Inhale 2 puffs every 4 hours by inhalati on route. active Not Available Not Available No t Available aripipraz ole 2 mg tablet TAKE ONE (1) TABLET BY MOUTH DAILY 06/25 completed Not Available Not Available Not Available Mucinex 1,200 mg tablet, extended release TAKE ONE (1) TABLET EVERY DAY BY ORAL ROUTE FOR 7 DAYS. 11/23 completed Not Available Not Available Not Available diclofena c 1 % topical gel APPLY TWO (2) GRAMS TOPICALL Y FOUR (4) TIMES DAILY TO SINGLE ELBOW WRIST OR HAND; FOR HAND INCLUDES PALM/FIN GERS/JOSE K OF HAND 11/23 completed Not Available Not Available Not Available ProAir RespiClic k 90 mcg/actua tion breath activated INHALE TWO (2) INHALATI ONS EVERY 4-6 HOURS NEEDED FOR SHORTNES S OF BREATH OR WHEEZING 11/23 completed Not Available Not Available Not Available Repatha SureClick 140 mg/mL subcutane ous pen injector INJECT ONE (1) ML EVERY TWO (2) WEEKS BY SUBCUTAN EOUS ROUTE DIRECTED active Not Available Not Available No t Available Trelegy Ellipta 100 mcg-62.5 mcg-25 mcg powder for inhalatio n Inhale 1 puff every day by inhalati on route. active Not Available Not Available No t Available Veozah 45 mg tablet TAKE ONE (1) TABLET EVERY DAY BY ORAL ROUTE DIRECTED . active Not Available Not Available No t Available Vitals Date Recorded Body height Body mass index (BMI) Body weight Oxygen saturation Oxygen saturation in Arterial blood by Pulse oximetry Heart rate Systolic blood pressure Diastolic blood pressure Provider Name and Address Organization Details Last Updated DateTime 4 157.48 cm 24.5 kg/m2 46904.3 8 g 97 % 97 % 83 /min 110 mm[Hg] 72 mm[Hg] Corrine ghotra [facility] & [place] 4 13:05:02 Date Recorded Body height Body mass index (BMI) Body weight Oxygen saturation Oxygen saturation in Arterial blood by Pulse oximetry Heart rate Systolic blood pressure Diastolic blood pressure Provider Name and Address Organization Details Last Updated DateTime 4 157.48 cm 24.1 kg/m2 12713.1 9 g 97 % 97 % 77 /min 118 mm[Hg] 64 mm[Hg] Corrine ghotra [facility] & [place] 4 14:01:13 Social History Question Answer Notes LastModified by Organizat ion Details LastModified Time Tobacco Smoking Status Former Smoker Faith Rupesh [facility] & [place] 11/22/2021 15:58:38 Do You Have An Advance Directive? No [email or web address] Information not available 12/14/2021 Are You Blind Or Do You Have Difficulty Seeing? No Information not available 12/14/2021 What Is Your Level Of Caffeine Consumption? Occasional Information not available 01/31/2022 When Did You Quit Smoking? 11-15yearssince lastcigarette Information not available 01/31/2022 What Was The Date Of Your Most Recent Tobacco Screening? 12/11/2021 [email or web address] Information not available 12/14/2021 What Is Your Current Pack Years? [email or web address] Information not available 01/31/2022 At What Age Did You Start Smoking Tobacco? 17 Information not available 01/31/2022 Are You Passively Exposed To Smoke? No [email or web address] Information not available 12/14/2021 Has Tobacco Cessation Counseling Been Provided? No Information not available 01/31/2022 How Many Years Have You Smoked Tobacco? 32 [email or web address] Information not available 11/22/2021 Sex: Unknown Functional Status Question Answer Note LastModified by Organizat ion Details LastModified Time Do you use any illicit or recreational drugs? No [email or web address] Information not available 11/22/2021 Do you or have you ever used any other forms of tobacco or nicotine? No Information not available 01/31/2022 What is your level of alcohol consumption? Occasional Information not available 11/22/2021 Mental Status None recorded. Family History Relationship Description Onset Age of this Age Resolved Age Notes LastModified by Organization Details LastModified Time Mother Chronic obstructive pulmonary disease Not available 10/29 15:56:15 Mother Hypertensive disorder pt. added direct ly (06/22) [email or web address] Not available 06/23/2023 18:54:08 Mother Cerebrovascu lar accident pt. added direct ly (06/22) [email or web address]-13 Not available 06/23/2023 18:54:44 Mother Disorder of thyroid gland pt. added direct ly (06/22) [email or web address]-13 Not available 06/23/2023 18:55:14 Brother Heart disease [email or web address] Not available 10/29 15:56:52 Brother Myocardial infarction pt. added direct ly (06/22) [email or web address]-13 Not available 06/23/2023 18:53:46 Brother Disorder of thyroid gland pt. added direct ly (06/22) [email or web address]-13 Not available 06/23/2023 18:55:14 Sister Acute heart disease [email or web address] Not available 2024 08:01:52 Sister Myocardial infarction pt. added direct ly (06/22) [email or web address]-13 Not available 06/23/2023 18:53:46 Sister Disorder of thyroid gland pt. added direct ly (04/26 /24) [email or web address]-13 Not available 06/23/2023 18:55:14 Medical History Condition Response COPD Y Carotid Disease Y Headaches Y Asthma Y Hypertension Y Gynecological History Statement/Question Response Menses Monthly N Abnormal Pap N Obstetrics History GPAL:G 0 P 0 0 0 0 Immunizations Vaccine Type Date Status Note Provider Nam e and Address Organization Details Recorded Time Influenza, split virus, quadrivalent, preservative 2 completed Tracey Kn[place] 06/14/2022 09:04:40 Influenza, recombinant, quadrivalent, PF 8 completed Tracey Knarr null, [place] [facility] & [place] 06/14/2022 09:04:40 zoster recombinant 2 completed Tracey Kn[place] 06/14/2022 09:04:40 COVID-19, mRNA, LNP-S, PF, 100 mcg/0.5mL dose or 50 mcg/0.25mL dose 1 completed Tracey Kn[place] null[place] [facility] & [place] 06/14/2022 09:04:40 COVID-19, mRNA, LNP-S, PF, 100 mcg/0.5mL dose or 50 mcg/0.25mL dose 1 completed Tracey Kn[place] null[place] [facility] & [place] 06/14/2022 09:04:40 COVID-19, mRNA, LNP-S, PF, 100 mcg/0.5mL dose or 50 mcg/0.25mL dose 1 completed Tracey Kn[place] 06/14/2022 09:04:40 Tdap 8 completed Tracey Kn[place] 06/14/2022 09:04:40 Influenza, split virus, quadrivalent, PF 1 completed Tracey [place] 06/14/2022 09:04:40 Past Encounters Encounter ID Performer Location Encounter Start Date Encounter Closed Date Diagnosis/Indication Diagnosis SNOMED-CT Code Diagnosis ICD10 Code Diagnosis Note [id number] Debbi Ruiz MD [facility] [address]NAN[address]Z [address] [place] [address] 11/22/2021 08:25:25 11/22/2021 09:36:26 Intermittent palpitations 737902858 R00.2 Essential hypertension 76029074 I10 Patient Education was printed, I have reviewed the Past Medical, Family, and Social Histories along with ROS and all orders in today's record, and have noted any changes.Me dications, charts and records reviewed in full today.Bloo d pressure 144/80, heart rate 96, weight 150.4 lb. Oxygen saturation is 99% on room air. EKG today reveals sinus rhythm with a rate of 96 beats per minute, nonspecifi c T-wave abnormalit y, abnormal EKG. Baseline.. LAST ECHO: None on file. LAST ISCHEMIC EVAL: None on file. LAST HEART CATH: None on file. LAST LDL: None on file. LAST CNI: None on file. PAST C: None on file..Plan :Obtain prior records from Cardiology at Dr. Sow, and [facility].O btain carotid artery ultrasound from [facility].G XT stress test.Echoc ardiogram. Start diltiazem CD 100 80 mg once daily.Guera tor blood pressure and heart rate daily and bring log of follow-up. Follow-up in one month.-Con tinue other current medication s.-Continu e aggressive risk factor modificati on.-Recomm end LDL less than 100.-Encou raged regular exercise and activity.. .IAnanth APRN, am scribing for, and in the presence of, Debbi Ruiz MD...Debbi Obregon M.D. performed the services as described in this documentat ion, as scribed by Ananth Corea APRN in my presence, and it is both accurate and complete.. .This note was dictated using [employer] software. If something is unclear, or does not make sense, please do not hesitate to contact our office at for clarificat ion.. Chronic ob structive pulmonary disease 55332773 J44.9 Moderate p ersistent asthma 028344473 J45.40 Left carot id artery stenosis 6355105907 30888 I65.22 Family his tory of Cardiovascular disease 495838839 Z82.49 Former hea vy tobacco smoker 2937966683 06736 Z87.891 Dyspnea on exertion 6084 5006 R06.09 [id number] Harjit Riley MD [facility] [place] [address] [place] [address] 9 11/23/2021 14:43:50 11/23/2021 15:33:14 Osteoarthritis of right hip joint 2242015669 29189 M16.11 [id number] Debbi Ruiz MD [address] HERNANDEZ [address] [place] [address] 6 12/14/2021 09:50:09 12/14/2021 10:51:44 Essential hypertension 57419419 I10 Palpitations 94421586 R0 0.2 Chronic ob structive pulmonary disease 82484554 J44.9 Hypertensive disorder 38 448488 I10 [id number] Harjit Riley MD [place] [address] 01/31/2022 13:49:04 01/31/2022 14:30:38 History of total replacement of right hip joint 8406137467 70188 Z96.641 [id number] Harjit Riley MD [place] [address] 9 03/02/2022 14:35:37 03/02/2022 15:05:57 History of total replacement of right hip joint 5985938220 01065 Z96.641 [id number] Debbi Ruiz MD [address] HERNANDEZ [address] [place], [place] [address] 06/14/2022 08:43:35 06/14/2022 09:32:38 Essential hypertension 73902134 I10 Palpitations 60327641 R0 0.2 Diastolic dysfunction 35 07957 I51.9 Dyspnea on exertion 6084 5006 R06.09 Chronic ob structive pulmonary disease 82994267 J44.9 [id number] ANANTH COREA NP, S [place] [address] [place] [address] 06/26/2023 09:53:36 06/26/2023 11:27:10 Chest pain 08455302 R07.9 Progressive angina 04269 6006 I20.0 Dizziness 021943118 R42 Dyspnea on exertion 6084 5006 R06.09 Essential hypertension 88034943 I10 Palpitations 79585906 R0 0.2 Diastolic dysfunction 35 50265 I51.9 Chronic ob structive pulmonary disease 85544038 J44.9 [id number] ANANTH COREA NP, S DEISI [address] HERNANDEZ [address] [place] [address] 07/18/2023 12:46:54 07/18/2023 13:29:36 Essential hypertension 50992847 I10 Palpitations 42287566 R0 0.2 Diastolic dysfunction 35 75313 I51.9 Chronic ob structive pulmonary disease 93530720 J44.9 Coronary arteriosclerosis 71309717 I25.10 [id number] ANANTH COREA NP, S DEISI [address] HERNANDEZ [address] [place] [id number] 08/23/2023 13:30:16 08/23/2023 14:34:14 Essential hypertension 43355378 I10 Palpitations 86504833 R0 0.2 Diastolic dysfunction 35 36988 I51.9 Chronic ob structive pulmonary disease 08702415 J44.9 Coronary arteriosclerosis 65809381 I25.10 [id number] Harjit Riley MD [facility] [address] [facility] [place] [address] 03/27/2024 08:07:15 03/27/2024 08:41:13 Pain of right shoulder joint 3862023017 8237553 M25.511 Neck pain 20858450 M54.2 Falling injury 065082460 W19.XXXA [id number] DO DEISI YA [facility] [address] [place] [address] 04/08/2024 08:21:16 04/08/2024 08:37:55 Partial thickness rotator cuff tear 980595257 M75.316 [id number] DO DEISI YA Meawinifred colmenares [facility] [address] [place] [address] 05/20/2024 08:01:22 05/20/2024 08:25:58 Tendinitis of right biceps brachii 1103511846 7107 M75.21 Health Concerns Section Related Observation LastModified by Organization Detai ls LastModified Time None Recorded Concern Status LastModified by Organization Details LastModified Time None Recorded Advance Directives Directive N: Payers Insurance Date Sequence Insurance Name Policy Number Policy Dixon Covered Member ID Dixon Member ID Guarantor Name 03/27/2024 1 [employer] (MEDICARE REPLACEMENT/AD VANTAGE - PPO) Ramila Augustin [id number] Ramila Augustin 03/27/2024 1 [place] [id number] Ramila Augustin [id number] Ramila Augustin 05/23/2024 1 [place] [id number] Ramila Augustin [id number] Ramila Augustin 03/27/2024 1 [employer] (MEDICARE REPLACEMENT/AD VANTAGE - HMO) Ramila Augustin [id number] Ramila Augustin 03/27/2024 1 [place] [id number] Ramila Augustin [id number] Ramila Augustin Notes Date Note Type Note Provider Name and Address Organization Details Recorded Time 07/18/2023 text/html Ramila is a 62-ye ar-old female who presents today in follow-up. The patient has a history significant for hypertension, hyperlipidemia, diastolic dysfunction of the left ventricle, carotid artery stenosis, coronary artery disease, COPD, and palpitations. Since our last visit, the patient underwent left heart catheterization revealed mild diffuse coronary artery disease with normal LVEDP and normal LVEF. The patient had a relatively unremarkable CBC, and CMP with a sodium of 133, and alkaline phosphatase of 133. The patient's total cholesterol was 231, HDL was 77, and LDL was 145. The patient reports that she continues to have intermittent chest pains which are often described as sharp, although this could not be explained by her coronary angiography. The patient has a CT scan scheduled later this month for her primary care provider at [facility]. The patient's carotid ultrasound and echocardiogram are also scheduled later this month here at [facility]. ANANTH COREA NP, [address] [place] [address],[address], [place], [address], [facility] & [place] 07/18/2023 15:56:55 08/23/2023 text/html Ramila is a 62-ye ar-old female who presents today in follow-up. The patient has a history significant for hypertension, hyperlipidemia, diastolic dysfunction of the left ventricle, carotid artery stenosis, coronary artery disease, COPD, and palpitations. Reviewed echocardiogram and carotid ultrasound in detail. The patient reports that she is feeling well. The patient did have to stop her atorvastatin due to significant muscle cramps. These have resolved off of atorvastatin. No other cardiovascular or cardiopulmonary complaints. ANANTH COREA NP, [address] [place] [address],[address], [place], [address], [facility] - [facility] & [place] 08/23/2023 18:20:37 03/27/2024 text/html 63 y/o female he re today for right upper extremity/neck pain s/p fall after slipping on ice on 03.23.24.Pain is mostly about right side of neck and right shoulder but also has pain about the rest of upper ext at times. Has full ROM of elbow and wrist. Denies numbness and tingling. Taking Tyl PRN. E2AP Right shoulder and neck x-rays in office @ [facility] 03.26.24 Harjit Riley MD [address] [place] [address],[address], [place], [address], [facility] - [facility] & [place] 03/28/2024 08:31:50 04/08/2024 text/html MRI RIGHT SHOULD ER @ [facility] 04.03.2024 Supraspinatus tendinopathy and bursal sided fraying. 4 mm low-grade intrasubstance or articular sided tear of the posteriorsupraspinatus /anteriorinfraspinatus . No full-thickness or retracted rotator cuff tendontear.- Glenohumeral and acromioclavicular osteoarthrosis. JOSEPH CROWDER DO [address], [place], [address], [place] - [facility] - [place] & [place] 04/08/2024 08:38:40 05/20/2024 text/html PT is here for f /u of her MRI RIGHT SHOULDER @ [facility] 04.03.2024 Supraspinatus tendinopathy and bursal sided fraying. 4 mm low-grade intrasubstance or articular sided tear of the posterior supraspinatus/anterior infraspinatus. No full-thickness or retracted rotator cuff tendon tear. - Glenohumeral and acromioclavicular osteoarthrosis.right shoulder subacromial space injection on 04.08.24. She reports the last inj was effective for about 4 days. She is wanting another but i informed her they are given every 3 months. She reports she can move the shoulder good just having pain-[id number] JOSEPH CROWDER, [address], [place], [address], [place] - [facility] & [place] 05/20/2024 12:49:00 OBGyn Episode No OBEpisode recorded.
--- OUTSIDE RECORDS SUMMARY | 2024-08-24 08:32 | XMS_ITS | Clinical Summary ---
Author Organization [facility] Address [address] [place] [address] Phone Care Team Providers Care Tobacco Flavorer Name Role Phone Pietro Verdugo MD Primary Care Provider [phone] Devon Burroughs MD Unavailable [phone] Daniel Hook MD Unavailable [phone] Allergies Active Allergy Reactions Criticality Noted Date Comments Ibuprofen Rash Medium 08/23/2021 Cephalexin Rash Medium 08/23/2021 Lincomycin Rash Medium 09/09/2015 Metoprolol Tartrate Other (See Comments) Low 2015 hypotension Meloxicam Rash Medium 07/15/2021 Penicillins Rash High 02/28/2011 Penicillins Anaphylaxis High 04/30/2021 Medications aspirin 81 mg tablet Take 81 mg by mouth daily. Active atorvastatin (LIPITOR) 10 mg Oral Tablet Take 1 Tab by mouth nightly. 30 Tab 7 Active Additional Information Patient not taking.Reason: Pt electing to not take the medication, Informant: Self/Patient, Reported on 10/06/2022 citalopram (CELEXA) 20 mg Oral Tablet Take 20 mg by mouth daily. Active omeprazole (PRILOSEC) 20 mg Oral Capsule, Delayed Release(E.C.) Take 20 mg by mouth daily. Active metoprolol (LOPRESSOR) 25 mg Oral Tablet Take 1 Tab by mouth 2 times daily. 60 Tab 11 9 Active ipratropium (ATROVENT) 0.03 % Nasl Struthers, Non-Aerosol 1 Struthers by Nasal route 4 times daily. 30 mL 5 9 Active montelukast (SINGULAIR) 10 mg Oral Tablet Take 1 Tab by mouth nightly. 90 Tab 3 9 Active albuterol (PROVENTIL HFA;VENTOLIN HFA) 90 mcg/actuation Inhl HFA Aerosol InhalerIndicatio ns:Mixed simple and mucopurulent chronic bronchitis (HCC) Inhale 2 Puffs into the lungs every 4 hours as needed for Wheezing. 3 Inhaler 3 0 Active albuterol (PROVENTIL) 2.5 mg /3 mL (0.083 %) Inhl Solution for NebulizationIndi cations:Mixed simple and mucopurulent chronic bronchitis (HCC) Take 3 mL by nebulization every 6 hours as needed for Wheezing. 3 box 3 0 Active fluticasone-umec lidinium-vilante rol (TRELEGY ELLIPTA) 100-62.5-25 mcg Inhl Disk with DeviceIndication s:Mixed simple and mucopurulent chronic bronchitis (HCC) Inhale 1 Puff into the lungs daily. 3 Each 3 0 Active pantoprazole (PROTONIX) 40 mg Oral Tablet, Delayed Release (E.C.) Take 40 mg by mouth daily. Active amLODIPine-benaz epril (LOTREL) 10-40 mg Oral Capsule Take 1 Cap by mouth daily. Active oxyCODONE-acetam inophen (PERCOCET) 5-325 mg Oral Tablet Take 1 Tablet by mouth every 4 hours as needed for Acute Pain (R52) for up to 12 doses. 12 Tablet 08/04/2022 6:22 PM EDT 3 Active valACYclovir (VALTREX) 1 gram Oral Tablet TAKE ONE (1) TABLET BY MOUTH TWICE DAILY 2 Active PREMARIN 0.3 mg Oral Tablet TAKE ONE (1) TABLET BY MOUTH DAILY CYCLICALLY 1 Active citalopram (CELEXA) 20 mg Oral Tablet Take 20 mg by mouth daily. 1 Active amLODIPine-benaz epril (LOTREL) 10-40 mg Oral Capsule TAKE ONE (1) CAPSULE BY MOUTH EVERY DAY 1 Active omeprazole (PRILOSEC) 20 mg Oral Capsule, Delayed Release(E.C.) Take 20 mg by mouth daily. Active meloxicam (MOBIC) 15 mg Oral TabletIndication s:SI (sacroiliac) joint dysfunction Take 1 Tablet by mouth in the morning. 30 Tablet 2 Active TRELEGY ELLIPTA 100-62.5-25 mcg Inhl Disk with Device INHALE ONE (1) PUFF EVERY DAY 2 Active methylPREDNISolo ne (MEDROL DOSPACK) 4 mg Oral Tablets, Dose Pack TAKE DIRECTED FOR 6 DAYS 2 Active cephALEXin (KEFLEX) 500 mg Oral Capsule 2 Active PROAIR RESPICLICK 90 mcg/actuation Inhl Aerosol Powdr Breath Activated INHALE TWO (2) INHALATIONS EVERY 4-6 HOURS NEEDED FOR SHORTNESS OF BREATH OR WHEEZING 2 Active alendronate (FOSAMAX) 70 mg Oral Tablet Take 70 mg by mouth once a week. 3 Active Active Problems Problem Noted Date Diagnosed Date Enlarged lymph nodes 10/19/2022 Other bilateral secondary osteoarthritis of hip 04/30/2021 Hip pain 04/30/2021 Pleurisy 09/05/2018 PND (post-nasal drip) 09/05/2018 Uncontrolled hypertension 02/24/2017 Acute chest pain 02/23/2017 Dyspnea on exertion 09/09/2015 COPD (chronic obstructive pulmonary disease) History of TIA (transient ischemic attack) 09/08 Fibromyalgia 09/09/2015 Tachycardia Immunizations Immunization Administration Dates Next Due Tdap 11/01/2012 Surgical History Surgery Date Site/Laterality Comments CERVICAL FUSION CARPAL TUNNEL RELEASE left SECTION HYSTERECTOMY TONSILLECTOMY TYMPANOSTOMY TUBE PLACEMENT SHOULDER SURGERY Bilateral US GUIDED THYROID BIOPSY 11/24/2017 US GUIDED THYROID BIOPSY 11/24/2017 EDG ULTRASOUND COLONOSCOPY Medical History Medical History Date Comments Tachycardia COPD (chronic obstructive pulmonary disease) (HC C) TIA (transient ischemic attack) 2013 3 TIAs in the past Fibromyalgia Thyroid nodule Emphysema of lung (HCC) Hypertension Colon polyp Family History Medical History Relation Name Comments Colon Polyps Father Heart Disease Mother Colon Polyps Sister Relation Name Status Comments Father Mother Sister Social History Tobacco Use Types Packs/Day Years Used Date Smoking Tobacco: Former Cigarettes 1.5 41 1 973 - 02/26/2013 Smokeless Tobacco: Never Tobacco Cessation:Counseling Given: Not Answered Alcohol Use Standard Drinks/Week Comments No 0 (1 standard drink = 0.6 oz pur e alcohol) Comments No Sex and Gender Information Value Date Recorded Sex Assigned at Not on file Legal Sex Female 2:53 AM EDT Gender Identity Not on file Sexual Orientation Not on file Obstetrics History Last Filed Vital Signs Vital Sign Reading Time Taken Comments Blood Pressure 138/66 10/19/2022 1:51 PM EDT Pulse 76 10/19/2022 1:51 PM EDT Temperature 35.9 C (96.6 F) 10/19/2022 1:51 PM EDT Respiratory Rate 18 10/06/2022 1:45 PM EDT Oxygen Saturation 99% 10/19/2022 1:51 PM EDT Inhaled Oxygen Concentration - - Weight 58.6 kg (129 lb 3.2 oz) 10/19/2022 1:51 P M EDT Height 157.5 cm (5' 2 ) 10/06/2022 12:17 PM EDT Body Mass Index 23.63 10/06/2022 12:17 PM EDT Plan of Treatment Health Maintenance Due Date Last Done Comments Wellness Exam Medicare 09/17/1963 Hepatitis C Screening 09/17/1977 HPV/Pap Cotest 09/17/1989 Cologuard 09/17/2004 FIT 09/17/2004 Sigmoidoscopy 09/17/2004 Virtual Colonography 09/17/2004 Cervical Cancer Screening 11/29/2018 Pap Smear 11/29/2018 11/30/2015 (Postponed) RSV or 60+ (1 - Risk 60-74 years 1-dose series) 2019 Zoster (2 of 2) 12/15/2021 10/20/2021 COVID-19 Vaccine ( season) 2023 02/03/2021, 06/05/2020, 05/08/2020 Low Dose Lung Cancer Screening 11/10/2023 11/09/2022, 09/10/2018, 06/12/2014 Influenza Vaccine (Season Ended) 2024 12/22/2022, 12/22/2021, 12/14/2020, Additional history exists Breast Cancer Screening 12/01/2024 12/02/19, 04/12/2019, 04/19/2018, Additional history exists DTaP/TDaP/Td (3 - Td or Tdap) 06/03/2027 06/02/2017, 11/01/2012 Colon Cancer Screening 10/05/2027 Colonoscopy 10/05/2027 10/06/2022, 11/27, 11/30/2015 (Postponed) Pneumococcal Vaccine 50+ Completed 11/23/2022 Hepatitis B Vaccine Aged Out No longe r eligible based on patient's age to complete this topic Meningococcal B Vaccine Aged Out No l onger eligible based on patient's age to complete this topic Procedures Procedure Name Priority Date/Time Associated Diagnosis Comments MM MAMMO DIGITAL SAILAJA SCREEN BILAT Routine 12/01/2022 9:17 AM EDT Encounter for screening mammogram for malignant neoplasm of breast CT CHEST W CONTRAST Routine 11/09/2022 1 0:46 AM EDT Enlarged lymph nodes COLONOSCOPY Routine 10/06/2022 1:26 PM EDT Personal history of colonic polyps Family hx colonic polyps from Last 3 Months or Most Recently Relevant to Health Maintenance Results * MM MAMMO DIGITAL SAILAJA SCREEN BILAT (12/01/2022 9:17 AM EDT) Anatomical Region Laterality Modality Breast Bilateral Mammography 12/01/2022 10:2 3 AM EDT Impressions 12/01/2022 10:23 AM EDT Negative ([id number]) ~ RECOMMENDATION: Routine screening mammogram in 1 year. ~ DISCLAIMER * Any patient with a palpable abnormality, unexplained by breast imaging, should be managed on clinical basis by the attending physician. * Breast imaging has a false negative rate of 15%. * The patient was notified by mail of the results of this examination. *The patient's information was entered into a reminder system with a target due date for the next mammogram, in accordance with the [employer] and the Society of Breast Imaging recommendations. Narrative 12/01/2022 10:23 AM EDT Procedure:MM MAMMO DIGITAL SAILAJA SCREEN BILAT ~ Reason for exam: screening, asymptomatic. Z12.31-Encounter for screening mammogram for malignant neoplasm of [id number] ~ MM MAMMO DIGITAL SAILAJA SCREEN BILAT Bilateral CC and MLO view(s) were taken. There are scattered fibroglandular densities. Prior study comparison: Compared with prior studies the most recent being 04/19/18, 04/19/17 No mammographic evidence of malignancy. ~ Procedure Note Laureen Chamberlain MD - 12/01/2022 Procedure:MM MAMMO DIGITAL SAILAJA SCREEN BILAT ~ Reason for exam: screening, asymptomatic. Z12.31-Encounter for screening mammogram for malignant neoplasm of [id number]-[id number]-CM ~ MM MAMMO DIGITAL SAILAJA SCREEN BILAT Bilateral CC and MLO view(s) were taken. There are scattered fibroglandular densities. Prior study comparison: Compared with prior studies the most recentbeing 04/19/18, 04/19/17 No mammographic evidence of malignancy. ~ IMPRESSION: Negative ([id number]) ~ RECOMMENDATION: Routine screening mammogram in 1 year. ~ DISCLAIMER * Any patient with a palpable abnormality, unexplained by breast imaging, should be managed on clinical basis by the attending physician. * Breast imaging has a false negative rate of 15%. * The patient was notified by mail of the results of this examination. *The patient's information was entered into a reminder system with atarget due date for the next mammogram, in accordance with the [employer] and the Society of Breast Imaging recommendations. Pietro Verdugo MD IMG MAMMOGRAPHY ORDERABLES Final Result * CT CHEST W CONTRAST (11/09/2022 10:46 AM EDT) Anatomical Region Laterality Modality Chest Computed Tomogra phy 11/09/2022 10:4 6 AM EDT Impressions 11/09/2022 12:14 PM EDT No significant abnormality in the chest. Specifically, no regional lymphadenopathy. - Note: Radiology results need to be interpreted within a comprehensive clinical context. If you have questions about the radiology report, please contact the office of the ordering clinician. Narrative 11/09/2022 12:[address] CHEST WITH CONTRAST, 11/09/2022 10:46 AM CLINICAL HISTORY: R59.9-Enlarged lymph nodes, [id number]. COMPARISON: 10/04/2022 and multiple priors PROCEDURE COMMENTS: Multi detector CT scanning of the chest. Multiplanar reconstructions per protocol. Isovue 370 IV contrast given as recorded in EPIC. Dose 1 : CT DLP Total : 286.3 mGycm DLP Spiral Max : 285.2 mGycm Maximum CTDI Vol : 12.8 mGy FINDINGS: Mild emphysema. Mild bibasilar dependent pleural thickening with calcification, stable compared to prior studies. No pleural effusion. Scattered calcified granulomas. No new suspicious or enlarging pulmonary nodules. No regional lymphadenopathy. The heart and major vessels are unremarkable. Chronic left rib fracture deformities. ACDF partially included. Coronary artery calcification: Mild. Procedure Note Brennen Valentine MD - 11/09/2022 CT CHEST WITH CONTRAST, 11/09/2022 10:46 AM CLINICAL HISTORY: R59.9-Enlarged lymph nodes, [id number]. COMPARISON: 10/04/2022 and multiple priors PROCEDURE COMMENTS: Multi detector CT scanning of the chest. Multiplanar reconstructions per protocol. Isovue 370 IV contrast given as recorded inEPIC. Dose 1 : CT DLP Total : 286.3 mGycm DLP Spiral Max : 285.2 mGycm Maximum CTDI Vol : 12.8 mGy FINDINGS: Mild emphysema. Mild bibasilar dependent pleural thickeningwith calcification, stable compared to prior studies. No pleural effusion.Scattered calcified granulomas. No new suspicious or enlarging pulmonary nodules. No regional lymphadenopathy. The heart and major vessels areunremarkable. Chronic left rib fracture deformities. ACDF partially included. Coronary artery calcification: Mild. IMPRESSION: No significant abnormality in the chest. Specifically, no regional lymphadenopathy. - Note: Radiology results need to be interpreted within a comprehensiveclinical context. If you have questions about the radiology report, please contactthe office of the ordering clinician. Raman Bustillos MD IM CT ORDERABLES Final Resul t * COLONOSCOPY (10/06/2022 1:26 PM EDT) Anatomical Region Laterality Modality Endoscopy Narrative 10/06/2022 1:34 PM EDT Table formatting from the original result was not included. Findings Two sessile, adenomatous-appearing polyps measuring 5-9 mm in the ascending colon; completely removed en bloc by cold snare and retrieved specimen Few scattered diverticula of moderate severity in the ascending colon, transverse colon, mid descending colon and mid sigmoid colon; no bleeding was identified Two internal medium, protruding (grade 2) hemorrhoids; no bleeding was identified Recommendation Repeat colonoscopy in 5 years Recommend a high fiber diet. Follow up with me or GHAZALA in clinic in 6 months Indication Personal history of colonic polyps, Family hx colonic polyps Staff Staff Role Jm Deluca MD Performing Provider Tuyet Terry RN Nurse Alexis Rosa CRNA ENGINEER SOILS Medications See Anesthesia Record. Preprocedure A history and physical has been performed, and patient medication allergies have been reviewed. The patient's tolerance of previous anesthesia has been reviewed. The risks and benefits of the procedure and the sedation options and risks were discussed with the patient. All questions were answered and informed consent obtained. ASA 3 - Patient with severe systemic disease Details of the Procedure The patient underwent monitored anesthesia care, which was administered by an anesthesia professional. The patient's blood pressure, heart rate, level of consciousness, oxygen, respirations, ECG and ETCO2 were monitored throughout the procedure. A digital rectal exam was performed. The scope was introduced through the anus and advanced to the cecum. Retroflexion was performed in the rectum. Bowel prep was adequate. The patient experienced no blood loss. The procedure was not difficult. The patient tolerated the procedure well. There were no apparent adverse events. Patient provided education and educated on specific discharge instructions. Patient educated on medications given during the procedure and new medications for discharge. Patient verbalizes understanding of discharge education. Patient stable and awaiting transport for discharge. Events Procedure Events Event Event Time ENDO SCOPE IN TIME 10/06/2022 1:13 PM ENDO CECUM REACHED 10/06/2022 1:17 PM ENDO SCOPE WITHDRAW BEGIN 10/06/2022 1:17 PM ENDO SCOPE OUT TIME 10/06/2022 1:26 PM Specimens ID Type Source Tests Collected by Time 1 : polyps Tissue Colon TSG PATHOLOGY ORDER Jm Deluca MD 10/06/2022 1328 Jm Deluca MD ENDOSCOPY PROCEDURE ORDERAB LES Final Result from Last 3 Months or Most Recently Relevant to Health Maintenance Insurance [facility] MEDICARE PPO MR [employer] MEDICARE PPO MR Advance Directives For more information, please contact: [phone] * Full Code (Latest Code Status on File) Date Activated Date Inactivated Comments 02/23/2017 9:10 AM 02/24/2017 6:54 PM Care Teams Tobacco Flavorer Relationship Specialty Start Date End Date Pietro Verdugo MD PCP - General Family Medicine 02/28/11 Devon Burroughs MD [address] [place] [address] Consulting Physician Internal Medicine - Clinical Cardiac Electrophysiology 11/30/15 Daniel Hook MD [address] [place] [address] Physician Internal Medicine-Cardiovascular Disease 03/01/17
--- OUTSIDE RECORDS SUMMARY | 2024-08-24 08:32 | XMS_ITS | Clinical Summary ---
Author Organization [facility] Address [address] [facility] [address] Care Team Providers Care Cardiac Rehabilitation Program Director Name Role Phone Pietro Verdugo MD Primary Care Provider [phone] Allergies Active Allergy Reactions Criticality Noted Date [...] Mass Index 29.26 06/13/2018 10:55 AM EDT Plan of Treatment Health Maintenance Due Date Last Done Comments Hepatitis C Screening 1959 Pap Screening 09/17/1980 Mammogram Screening 1999 Colonoscopy 09/17/2004 Pneumococcal 50+ (1 of 1 - PCV) 09/17/2009 Shingrix (#1) 09/17/2009 DTap,Tdap,and Td (2 - Td or Tdap) 11/01/2022 013 Influenza Vaccine (Season Ended) 2024 RSV Vaccine (60+ or ) (1 - 1-dose 75+ series) 09/17/2034 HPV Aged Out No longer eligi ble based on patient's age to complete this topic Meningococcal conjugate sruthi nt 4 (MCV4) Aged Out No longer eligible b ased on patient's age to complete this topic RSV Immunization (<20 months) Aged Out No longer eligible based on patient's age to complete this topic Insurance [facility] NOT MEDICARE Care Teams Cardiac Rehabilitation Program Director Relationship Specialty Start Date End Date Pietro Verdugo MD PCP - General 11/13/08
--- OUTSIDE RECORDS SUMMARY | 2024-08-24 09:31 | XMS_ITS | CCD ---
Author Organization Unknown Care Team Providers Care Grader Tender Name Role Phone Unavailable Primary Care Provider Unavailabl e Unavailable Chronic Care Management Unavaila ble Summary Purpose DataExchange Insurance Providers Payer name Policy type / Coverage type Covered constitution party ID Effective Begin Date Effective End Date [facility] [id number] Unknown Unknown Family History Family History data not found Medication Administered No Medication Administered data Reason For Visit No Reason For Visit data Medical Equipment No Medical Equipment data Advance Directives No Advance Directive data
--- OUTSIDE RECORDS SUMMARY | 2024-08-24 09:32 | XMS_ITS | CCD ---
Author Organization Unknown Care Team Providers Care Falsework Builder Name Role Phone Unavailable Primary Care Provider Unavailabl e Unavailable Chronic Care Management Unavaila ble Summary Purpose DataExchange Insurance Providers Payer name Policy type / Coverage type Covered libertarian ID Effective Begin Date Effective End Date [facility] [id number] Unknown Unknown Family History Family History data not found Medication Administered No Medication Administered data Reason For Visit No Reason For Visit data Medical Equipment No Medical Equipment data Advance Directives No Advance Directive data
--- OUTSIDE RECORDS SUMMARY | 2024-08-24 09:37 | XMS_ITS | CCD ---
Author Organization Unknown Care Team Providers Care Coordinator Of Library Services Name Role Phone Unavailable Primary Care Provider Unavailabl e Unavailable Chronic Care Management Unavaila ble Summary Purpose DataExchange Insurance Providers Payer name Policy type / Coverage type Covered constitution party ID Effective Begin Date Effective End Date [facility] [id number] Unknown Unknown Family History Family History data not found Medication Administered No Medication Administered data Reason For Visit No Reason For Visit data Medical Equipment No Medical Equipment data Advance Directives No Advance Directive data
--- OUTSIDE RECORDS SUMMARY | 2024-08-24 09:37 | XMS_ITS | CCD ---
Author Organization Unknown Care Team Providers Care Pearl Restorer Name Role Phone Unavailable Primary Care Provider Unavailabl e Unavailable Chronic Care Management Unavaila ble Summary Purpose DataExchange Insurance Providers Payer name Policy type / Coverage type Covered democrat ID Effective Begin Date Effective End Date [facility] [id number] Unknown Unknown Family History Family History data not found Medication Administered No Medication Administered data Reason For Visit No Reason For Visit data Medical Equipment No Medical Equipment data Advance Directives No Advance Directive data
== END 2024-08-23 23:59 | disposition home or self-care (01) ==
LOC: LAB 08-24 08:35
PROVIDERS: PCP Nurse Practitioner Family; Visit Provider Nurse Practitioner Family
DX: R35.0 Frequency of micturition (principal)
CPT/HCPCS: 87086